=== PATIENT | male | born 1955 | race African-American/Black ===

== ENCOUNTER 2017-12-16 06:57 | Emergency (ER) | payer MEDICAID, OTHER ==
[2017-12-16 07:30] LABS: Bilirubin Negative (Negative); Blood, Urine Negative (Negative); Clarity CLEAR (Clear); Glucose, Urine (Dipstick) Negative (Negative); Leukocyte Moderate (Negative); Nitrite Negative (Negative); Protein, Urine (Dipstick) Trace mg/dL (Neg-Trace); Specific Gravity, Urine 1.019 (1.002-1.036); pH, Urine 6.5 (5.0-9.0)
[2017-12-16 07:32] LABS: Bacteria/HPF None Seen HPF (None Seen); Hyaline Casts/LPF 4-6 HYALINE CAST LPF (0-3 Hyaline); Pathc Cast-AUWi Flag 0.29 (0-2.49); RBC/HPF 0-3 HPF (0-3); Squamous Epithelial 0-3 HPF (0-3)
[2017-12-16] MEDS ORDERED: Acetaminophen 325 MG TAB ONE (07:50)
[2017-12-16] MEDS ORDERED: Ibuprofen 200 MG TAB ONE (07:50)
== END 2017-12-16 08:10 | disposition home or self-care (01) ==
LOC: ERS 06:57
DX: S39.012A Strain of muscle, fascia and tendon of lower back, initial encounter (principal); E78.5 Hyperlipidemia, unspecified; I10 Essential (primary) hypertension; I25.2 Old myocardial infarction; F41.9 Anxiety disorder, unspecified; F17.210 Nicotine dependence, cigarettes, uncomplicated; Z79.899 Other long term (current) drug therapy; Z79.82 Long term (current) use of aspirin; X50.0XXA Overexertion from strenuous movement or load, initial encounter
CPT/HCPCS: 81003; 81015; 99283

== ENCOUNTER 2019-01-31 08:52 | Emergency (ER) | payer OTHER ==
[2019-01-31] MEDS ORDERED: cefTRIAXone\\ROCEPHIN 1 GM VIAL ONE (10:02)
[2019-01-31] MEDS ORDERED: Lidocaine 1% PF 5 ML VIAL ONE (10:03)
[2019-01-31] MEDS ORDERED: Dexamethasone 10 MG/ML VIAL IM SCH (10:15)
--- NOTE | 2019-01-31 10:28 | RAD ---
EXAM: Chest 2 views: HISTORY: Cough for 4 days COMPARISON: 11/12/2015 FINDINGS: There is a normal-sized cardiomediastinal silhouette. The patient is status post CABG. The pacemaker is unchanged in position. There is a calcified right hilar lymph node. There is no evidence of consolidation, mass, or pleural effusion. The bones are unremarkable. IMPRESSION: No evidence of acute cardiopulmonary disease
[2019-01-31] MEDS ORDERED: Dexamethasone 10 MG/ML VIAL ONE (10:32)
== END 2019-01-31 10:50 | disposition home or self-care (01) ==
LOC: ERS 08:52
DX: J18.9 Pneumonia, unspecified organism (principal); I10 Essential (primary) hypertension; E78.5 Hyperlipidemia, unspecified; F17.210 Nicotine dependence, cigarettes, uncomplicated; F41.9 Anxiety disorder, unspecified; E78.00 Pure hypercholesterolemia, unspecified
CPT/HCPCS: 71046; 96372; J0696; J1100; J2001

== ENCOUNTER 2019-02-11 08:30 | Observation (INO) | payer OTHER ==
[2019-02-11 09:01] LABS: #Eosinphils 0.1 thou/uL (0.0-0.7); #Lymphocytes 1.2 thou/uL (1.20-3.40); #Monocytes 0.6 thou/uL (0.11-0.59); #Neutrophils 8.1 thou/uL (1.40-6.50); %Basophils 0.4 % (0.0-1.0); %Eosinophils 0.8 % (0.0-10.0); %Lymphocytes 12.2 % (21.0-51.0); %Monocytes 5.9 % (0.0-10.0); %Neutrophils 80.8 % (42.0-75.0); Hemoglobin 14.2 g/dL (14.0-18.0); Mean Corpuscular HGB CONC 33.6 g/dL (32.0-36.0); Mean Corpuscular Hemoglobin 32.6 pg (27.0-31.0); Mean Corpuscular Volume 96.9 fL (78.0-98.0); Platelet Count 206 thou/uL (130-400); Red Blood Cell (RBC) Count 4.37 mill/uL (4.70-6.10)
[2019-02-11 09:23] LABS: Anion Gap 14 mmol/L (10-20); BUN (Urea Nitrogen) 20 mg/dL (8.4-25.7); Calc. Creatinine Clearance 0 mL/min (70-130); Calcium 8.4 mg/dL (7.8-10.44); Carbon Dioxide 19 mmol/L (23-31); Chloride 110 mmol/L (98-107); Estimated GFR-MDRD Greater than 90; Glucose 79 mg/dL (80-115); Potassium 3.7 mmol/L (3.5-5.1); Sodium 139 mmol/L (136-145)
--- NOTE | 2019-02-11 11:45 | RAD ---
PORTABLE AP CHEST XRAY: HISTORY: Chest pain with onset of symptoms this morning. COMPARISON: 01/31/2019. FINDINGS: Postsurgical changes related to CABG are again noted. Single lead left subclavian AICD device remain s in place. Cardiac silhouette is magnified by projection but does appear mildly enlarged. The pulm onary vasculature is within normal limits. Calcified right hilar mediastinal lymph nodes are again s een. Lungs remain clear. Chest is overall stable compared to prior exam. IMPRESSION: Stable chest without evidence of an acute cardiopulmonary process. POS: OFF
[2019-02-11 13:16] VITALS: BMI 26.4
[2019-02-11] MEDS ORDERED: Ondansetron PF 4 MG/2 ML Vial IVP PRN (13:23)
[2019-02-11] MEDS ORDERED: HYDROcodone/Acetaminophen 5/325 mg Tablet PO PRN ×2 (13:23)
[2019-02-11] MEDS ORDERED: Acetaminophen 325 MG TAB PO PRN (13:23)
[2019-02-11] MEDS ORDERED: Ondansetron ODT 4 MG TAB SL PRN (13:23)
[2019-02-11 15:21] LABS: Troponin I Less than 0.010 ng/mL (< 0.028)
[2019-02-11] MEDS: Guaifenesin DM 100-10/5 ML UDCUP PO PRN (17:29)
[2019-02-11 18:04] LABS: Troponin I 0.018 ng/mL (< 0.028)
[2019-02-11] MEDS: Carvedilol 6.25 MG TAB PO SCH (21:12)
[2019-02-11] MEDS: Famotidine 20 MG TAB PO SCH (21:14)
[2019-02-11] MEDS: Atorvastatin Calcium 40 MG TAB PO SCH (21:14)
--- NOTE | 2019-02-11 23:22 | HP ---
CHIEF COMPLAINT: Chest pain. HISTORY OF PRESENT ILLNESS: Mr. Richter is a 63-year-old Afro-[place] male with past medical history of coronary artery disease, status post CABG, hypertension, came because of chest pain, started in the retrosternal area, pressure-like, nonradiating, not associated with diaphoresis, but he has some shortness of breath. No nausea. This pain started this morning around 7:30 a.m., lasted for some time like more than half an hour, called the EMS. We gave him nitroglycerin, and the pain got resolved after he was reached to the hospital. The patient also received aspirin on the way to the hospital. In the ER, he was evaluated and found to be stable, admitted to rule out myocardial infarction. Initial cardiac enzymes were normal. PAST MEDICAL HISTORY: 1. Coronary artery disease, status post CABG. 2. Hypertension. 3. Hyperlipidemia. 4. Schizoaffective disorder. 5. Seizure disorder. PAST SURGICAL HISTORY: Status post CABG, status post defibrillator placement. CURRENT MEDICATIONS: The patient is on, 1. Amlodipine 10 mg daily. 2. Aspirin 325 mg daily. 3. Atorvastatin 40 mg daily. 4. Coreg 12.5 b.i.d. 5. Plavix 75 mg daily. 6. Isosorbide mononitrate 30 mg daily. 7. Dilantin 100 mg t.i.d. 8. Ranitidine 150 b.i.d. ALLERGIES: NKDA. FAMILY HISTORY: Nothing contributory. SOCIAL HISTORY: The patient lives alone. No history of alcohol intake. He still smokes 1-1/2 pack a day. REVIEW OF SYSTEMS: Unremarkable except for the chest pain. PHYSICAL EXAMINATION: GENERAL: The patient is alert, awake, and oriented x3. VITAL SIGNS: Temperature 98, pulse 80,bp 130/80 HEENT: Head is normocephalic and atraumatic. Pupils are equal and reactive. Nasopharynx is pale and dry. Hard and soft, no lesions. SKIN: Turgor decreased. NECK: Supple. No JVD. LUNGS: Bilateral air entry. No rales. No rhonchi. HEART: S1 and S2 regular. ABDOMEN: Soft. No distention. No tenderness. Normal bowel sounds present. RECTAL: Deferred. NEUROLOGIC: No focal deficits. LABORATORY DATA: CBC shows WBC 10, hemoglobin 14, hematocrit 42, platelets 206. Metabolic panel; sodium 139, potassium 3.7, chloride 110, CO2 19, BUN 20, creatinine 1, glucose 79. Troponin I less than 0.02. IMAGING STUDIES: Chest x-ray negative. EKG shows normal sinus rhythm, no acute ST-T changes seen. ASSESSMENT: 1. Chest pain, rule out myocardial infarction. 2. Hypertension. 3. Coronary artery disease, status post coronary artery bypass graft. 4. Hyperlipidemia. 5. Schizoaffective disorder. 6. Seizure disorder. PLAN: 1. Vital signs q.4 hours. 2. Activities as tolerated. 3. Allergies, NKDA. 4. Hep-Lock. 5. Aspirin 325 mg daily. 6. Nitroglycerin p.r.n. 7. Continue home medications. 8. We will obtain stress test. Job ID: [id number] [facility]
[2019-02-12] MEDS: Guaifenesin DM 100-10/5 ML UDCUP PO PRN ×2 (07:48→20:15)
[2019-02-12] MEDS: Amlodipine 10 MG TAB PO SCH (12:27)
[2019-02-12] MEDS: Carvedilol 6.25 MG TAB PO SCH ×2 (12:27→20:15)
[2019-02-12] MEDS: Aspirin 325 MG TAB PO SCH (12:27)
[2019-02-12] MEDS: Famotidine 20 MG TAB PO SCH ×2 (12:28→20:15)
[2019-02-12] MEDS: Isosorbide Mononitrate (ER) 30 MG TAB PO SCH (12:28)
[2019-02-12] MEDS ORDERED: ADENOSINE 60 MG/20 ML VIAL ONE (12:28)
[2019-02-12] MEDS: Clopidogrel Bisulfate 75 MG TAB PO SCH (12:28)
[2019-02-12] MEDS: Atorvastatin Calcium 40 MG TAB PO SCH (20:15)
--- NOTE | 2019-02-13 07:43 | NM ---
EXAM: NM Cardiac Stress W EF WF PROVIDED CLINICAL HISTORY: Chest pressure/chest pain. History of myocardial infarction. Coronary artery disease. History of prio r CABG and coronary artery stent placement. COMPARISON: 11/13/2015. FINDINGS: This examination was performed as a pharmacologic myocardial stress test after the intravenous admini stration of adenosine. As noted on the prior exam, there is a relatively fixed defect involving the inferior and inferolater al left ventricular wall on both the resting and stress acquisitions no significant reversible defect is seen. Gated images demonstrate generalized hypokinesis with essentially akinesis at the sep kayley. There is decreased thickening involving the inferior left ventricular wall. Left ventricular ejection fraction is diminished at 41%. Left ventricular ejection fraction on the prior study in 2015 was 42%. IMPRESSION: 1. Abnormal myocardial perfusion study with persistent scarring in the inferior and inferolateral lef t ventricular wall. No significant reversible defect is identified to suggest ischemia. 2. Decreased left ventricular ejection fraction of 41%. 3. Generalized hypokinesis with akinesis at the septum.
[2019-02-13] MEDS: Aspirin 325 MG TAB PO SCH (09:38)
[2019-02-13] MEDS: Amlodipine 10 MG TAB PO SCH (09:38)
[2019-02-13] MEDS: Carvedilol 6.25 MG TAB PO SCH ×2 (09:39→20:32)
[2019-02-13] MEDS: Famotidine 20 MG TAB PO SCH ×2 (09:39→20:30)
[2019-02-13] MEDS: Clopidogrel Bisulfate 75 MG TAB PO SCH (09:39)
[2019-02-13] MEDS: Isosorbide Mononitrate (ER) 30 MG TAB PO SCH (09:39)
[2019-02-13] MEDS: Atorvastatin Calcium 40 MG TAB PO SCH (20:30)
[2019-02-13] MEDS: Guaifenesin DM 100-10/5 ML UDCUP PO PRN (20:51)
[2019-02-13 22:11] LABS: Amphetamine Not Detected (NotDetected); Barbiturates Screen Detected (NotDetected); Benzodiazepine Screen Not Detected (NotDetected); Cocaine Metabolite Screen Detected (NotDetected); Medtox Control Line Valid? VALID (VALID); Medtox Reader # READER 1; Methadone Not Detected (NotDetected); Methamphetamine Not Detected (NotDetected); Opiate Screen Not Detected (NotDetected); Oxycodone Screen Not Detected (NotDetected); Phencyclidine (PCP) Not Detected (NotDetected); THC/Cannabinoid Screen Not Detected (NotDetected); Tricyclic Screen Not Detected (NotDetected)
--- NOTE | 2019-02-14 00:26 | CON ---
DATE OF CONSULTATION: 02/13/2019 REASON FOR CONSULTATION: Chest pain. HISTORY OF PRESENT ILLNESS: Mr. Richter is a 63-year-old gentleman with long history of chest pain and coronary artery disease, admitted with an episode of recurrent chest pain. Mr. Richter has had previous bypass surgery. He has also had multiple cardiac catheterizations, most . The patient was admitted in 1996 with noncardiac chest pain and also has a long history unfortunately of noncompliance. He ultimately did undergo cardiac catheterization in 1999 and found to have multivessel disease, had internal mammary to the LAD, vein graft to the diagonal, obtuse marginal and posterior descending artery. He has had multiple catheterizations since then. The cardiac catheterization done most recently was done in 2014 and he was found to have 3-vessel disease, occluded left anterior descending with a patent internal mammary, patent graft to the diagonal, occluded circumflex, patent graft to the obtuse marginal, and occluded right coronary artery with no grafts feasible to the right coronary as it is a chronically occluded vessel down the right coronary due to previous inferior infarct. The patient has some sharp chest pain with negative cardiac enzymes on this admission. MEDICATION: See the nurses note, but does not know what medicines he is taking, so he always makes me wonder what medicines he is actually taking. The prescribed medicines include aspirin, Plavix, atorvastatin, Dilantin, carvedilol, and amlodipine. PAST HISTORY: Other past history; previous defibrillator implantation . REVIEW OF SYSTEMS: CONSTITUTIONAL: No significant weight gain or loss. VISION: No changes. HEARING: No changes. PULMONARY: No cough or wheezing. GASTROINTESTINAL: No nausea, vomiting or diarrhea. SKIN: No rashes. PHYSICAL EXAMINATION: GENERAL: This is a pleasant gentleman, in no distress. VITAL SIGNS: Blood pressure 128/72, pulse 62 and regular. LUNGS: Clear. CARDIAC: Normal S1 and normal S2. ABDOMEN: Soft, nontender. EXTREMITIES: No clubbing, cyanosis, or edema. LABORATORY DATA: Cardiac enzymes were negative. I did order urine drug screen and lipid profile tomorrow. The stress test showed old inferior infarct. No ischemia. ASSESSMENT: 1. Previous bypass surgery. 2. No ischemia on stress testing. 3. History of noncompliance. 4. History of substance abuse. PLAN: 1. Do urine drug screen tomorrow. 2. Okay to me to be released home tomorrow. I would add nitroglycerin if needed. Otherwise would continue the same prescribed medicines. Job ID: [id number]
--- NOTE | 2019-02-14 05:33 | STRESS ---
Acquisition Time: 2019-02-12 10:26:30 Total Exercise Time: 00:03:29 Test Indications: CHEST PRESSURE Medications: Protocol: ADENOSINE Max HR: 071 BPM 44% of Pred: 158 BPM Max BP: 144/082 mmHG Max Work Load: 1.0 METS RESTING ECG: NORMAL SINUS RHYTHM/SINUS BRADYCARDIA WITH NON-SPECIFIC T WAVE CHANGES AT 57 BPM SYMPTOMS: NONE NORMAL BP RESPONSE ECTOPY: NONE ECG STRESS: NO SIGNIFICANT CHANGES INTERPRETATION:NEGATIVE ECG / AWAIT NUCLEAR IMAGES FOR DEFINITIVE DIAGNOSIS Confirmed by NICOLA DAVIS ELLEN ([id number]) on 02/14/2019 5:33:02 AM Referred By: MD [facility] Confirmed By:BREANN DAVIS PA-C
[2019-02-14 07:54] LABS: Cardiac Risk 2.9 (Less than 4.5)
[2019-02-14 08:14] VITALS: BP 144/87; TEMP 98
[2019-02-14] MEDS: Famotidine 20 MG TAB PO SCH (10:12)
[2019-02-14] MEDS: Isosorbide Mononitrate (ER) 30 MG TAB PO SCH (10:12)
[2019-02-14] MEDS: Aspirin 325 MG TAB PO SCH (10:12)
[2019-02-14] MEDS: Amlodipine 10 MG TAB PO SCH (10:12)
[2019-02-14] MEDS: Carvedilol 6.25 MG TAB PO SCH (10:12)
[2019-02-14] MEDS: Clopidogrel Bisulfate 75 MG TAB PO SCH (10:12)
--- NOTE | 2019-02-15 14:26 | DIS ---
DATE OF ADMISSION: 02/11/2019 DATE OF DISCHARGE: 02/14/2019 ADMITTING DIAGNOSES: 1. Chest pain, rule out myocardial infarction. 2. Hypertension. 3. Coronary artery disease, status post coronary artery bypass graft. 4. Hyperlipidemia. 5. Atrial fibrillation. 6. Seizure disorder. FINAL DIAGNOSES: 1. Chest pain. No evidence of acute ID, but showed abnormal Cardiolite stress test with persistent scarring in inferior and inferolateral wall with global hypokinesis with decreased ejection fraction of 41%. 2. Hypertension. 3. Schizoaffective disorder. 4. Coronary artery disease by history. BRIEF SUMMARY OF HOSPITAL COURSE: Mr. Richter is a 63-year-old Afro- male, admitted because of chest pain. We have discussed the patient, admitted to rule out myocardial infarction. Serial cardiac enzymes were done. Second CK-MB was within 0.018, third one was recent 0.018. Cardiolite stress test done, showed it was abnormal with persistent scattering inferior and inferolateral wall and global hypokinesis. In the view that, Cardiology consult was requested. The patient was seen by Dr. Garber, felt the patient does not have any acute ID. The stress test showing number of scarring. No reversible ischemia. Advised urine drug screen and it was positive for cocaine. The chest pain resolved. In view of that the patient is being discharged home. At the time of discharge, he was stable, vital signs stable, lungs clear, abdomen soft. Bowel sounds present. DISCHARGE MEDICATIONS: 1. Aspirin 325 mg daily. 2. Plavix 75 mg daily. 3. Lipitor 40 mg daily. 4. Dilantin 100 mg t.i.d. 5. Imdur 30 mg daily. 6. Coreg 12.5 b.i.d. 7. Amlodipine 10 mg daily. 8. Pepcid 20 b.i.d. 9. Robitussin p.r.n. FOLLOWUP: The patient will come for followup in 2 weeks. Job ID: [id number]
== END 2019-02-14 10:31 | disposition home or self-care (01) ==
LOC: ERS 08:30 → 2SW 13:11 → INTOOBSV 13:11
PROVIDERS: ADMIT Internal Medicine; ATTEND Internal Medicine
DX: R07.2 Precordial pain (principal); I10 Essential (primary) hypertension; E78.5 Hyperlipidemia, unspecified; I25.10 Atherosclerotic heart disease of native coronary artery without angina pectoris; I48.91 Unspecified atrial fibrillation; F25.9 Schizoaffective disorder, unspecified; G40.909 Epilepsy, unspecified, not intractable, without status epilepticus; Z79.82 Long term (current) use of aspirin; Z79.899 Other long term (current) drug therapy; Z95.1 Presence of aortocoronary bypass graft; Z95.810 Presence of automatic (implantable) cardiac defibrillator
CPT/HCPCS: 36415; 71045; 78452; 80048; 80061; 80306; 84484; 85025; 93005; 93017; A9500; G0378; J0153

== ENCOUNTER 2019-04-08 10:20 | Observation (INO) | payer OTHER ==
--- NOTE | 2019-04-08 10:45 | RAD ---
EXAM: Chest PA and lateral: HISTORY: Chest pain COMPARISON: 01/31/2019 FINDINGS: Lung marie are clear. Vascular markings are normal. Calcified right hilar lymph node again noted. Heart and mediastinum appear unremarkable. AICD leads and postoperative sternotomy changes again noted. Osseous structures are unremarkable. IMPRESSION: No acute process. No interval change.
[2019-04-08 11:40] LABS: #Basophils 0.1 thou/uL (0.0-0.2); #Eosinphils 0.1 thou/uL (0.0-0.7); #Lymphocytes 1.4 thou/uL (1.20-3.40); #Monocytes 0.7 thou/uL (0.11-0.59); #Neutrophils 4.8 thou/uL (1.40-6.50); %Basophils 0.9 % (0.0-1.0); %Eosinophils 1.1 % (0.0-10.0); %Lymphocytes 20.4 % (21.0-51.0); %Monocytes 9.5 % (0.0-10.0); %Neutrophils 68.2 % (42.0-75.0); Hemoglobin 14.3 g/dL (14.0-18.0); Mean Corpuscular HGB CONC 34.6 g/dL (32.0-36.0); Mean Corpuscular Hemoglobin 32.3 pg (27.0-31.0); Mean Corpuscular Volume 93.3 fL (78.0-98.0); Mean Platelet Volume 8.7 fL (7.4-10.4); Platelet Count 158 thou/uL (130-400); Red Blood Cell (RBC) Count 4.42 mill/uL (4.70-6.10)
[2019-04-08 11:52] LABS: ALT (SGPT) 16 U/L (8-55); AST (SGOT) 18 U/L (5-34); Albumin 3.8 g/dL (3.4-4.8); Alkaline Phosphatase 106 U/L (40-110); Anion Gap 11 mmol/L (10-20); BUN (Urea Nitrogen) 19 mg/dL (8.4-25.7); Bilirubin, Total 0.8 mg/dL (0.2-1.2); Calc. Creatinine Clearance 0 mL/min (70-130); Calcium 8.9 mg/dL (7.8-10.44); Carbon Dioxide 25 mmol/L (23-31); Chloride 106 mmol/L (98-107); Estimated GFR-MDRD 80; Globulin 2.7 g/dL (2.4-3.5); Glucose 76 mg/dL (80-115); Potassium 3.6 mmol/L (3.5-5.1); Protein, Total 6.5 g/dL (5.8-8.1); Sodium 138 mmol/L (136-145)
[2019-04-08 12:13] LABS: CKMB 3.4 ng/mL (0-6.6)
--- NOTE | 2019-04-08 13:12 | PDOC.FPRHP ---
- History of Present Illness Chief Complaint: Chest pain History of Present Illness: 63 y/o M with a pmhx of [place] X4, S/P CABG, HTN, and seizure D/O presents to the ED with CP, that cameon with walking this AM. PT states the pain was centrally located, alleviated with rest, and radiated down his left side. Associated with diaphoresis, SOB and and nausea. No vomiting. CP is not present upon my evaluation of patient. Pt states he is dizzy when he stands up suddenly. C/o sinus drainage and a cough with yellow productive sputum for X1 month now. Pt states he had a seizure 1.5 weeks ago. He has had seizure disorder for "years." Last month pt had a stress test with fixed defect. Dye Tub Tender Dr. Garber. ED course: EKG: T wave inversions, Trop 0.059. CTA neg for dissection or PE. Started on Th Lovenox. - Allergies/Adverse Reactions Allergies Allergy/AdvReac Type Severity Reaction Status Date / Time No Known Drug Allergies Allergy Verified 02/11/19 13:18 - Home Medications Medication Instructions Recorded Confirmed Type Aspirin 325 mg PO DAILY 02/10/13 04/08/19 History Clopidogrel Bisulfate [Plavix] 75 mg PO DAILY 02/10/13 04/08/19 History Atorvastatin Calcium [Lipitor] 40 mg PO HS 08/13/14 04/08/19 History Phenytoin Sodium Extended 100 mg PO BID 08/16/14 04/08/19 History [Dilantin] Isosorbide Mononitrate [Imdur] 30 mg PO DAILY #0 tab 12/19/14 04/08/19 Rx Carvedilol [Coreg] 12.5 mg PO BID 11/15/15 04/08/19 History Amlodipine [Norvasc] 10 mg PO DAILY 02/11/19 04/08/19 History Famotidine [Pepcid] 20 mg PO BID #30 tab 02/14/19 04/08/19 Rx - History PMHx: GI ulcer, Drug abuse, CAD, seizure d/o, CAD S/P CABG 1999, X4 [place], HTN PSHx: CABG 1999 FHx: Father of [place] at age 52, Mother HTN and DM II Social: Smokes cigarettes about 1 PPD for 40 years. Occasional beer, denies drug use. - Review of Systems General: denies: fever/chills, night sweats Eyes: denies: eye pain ENT: reports: nasal congestion, rhinorrhea Respiratory: reports: cough, congestion, shortness of breath, exercise intolerance Cardiovascular: reports: chest pain. denies: palpitation, edema Gastrointestinal: reports: nausea. denies: vomiting, diarrhea, abdominal pain Skin: denies: rashes, lesions Musculoskeletal: denies: pain, tenderness Neurological: reports: seizure (1.5 weeks ago.). denies: numbness, syncope - Vital signs BP: 143/88 HR: 80 RR: 18 Tmax: 98.4 Pox: 99% on RA Wt: 84.8 - Physical Exam Constitutional: NAD, awake, alert and oriented, well developed HEENT: normocephalic and atraumatic, PERRLA, EOMI, grossly normal vision, grossly normal hearing, MMM Neck: supple, FROM, no LAD Heart: RRR, normal S1/S2, no murmurs/rubs/gallops, pulses present, no edema Lungs: CTAB, no respiratory distress, good air movement, no rales/rhonchi, no wheezing, no retractions Abdomen: soft, non-tender, bowel sounds present Musculoskeletal: normal structure, normal tone Neurological: no focal deficit, CN II-XII intact, normal sensation Skin: no rash/lesions, good turgor, capillary refill <2 seconds Heme/Lymphatic: no unusual bruising or bleeding Psychiatric: normal mood and affect, good judgment and insight FMR H&P: Results - Labs Result Diagrams: 04/09/19 04:09 04/09/19 04:09 Lab results: WBC 7.0 thou/uL (4.8-10.8) 04/08/19 11:22 Hgb 14.3 g/dL (14.0-18.0) 04/08/19 11:22 Hct 41.2 % (42.0-52.0) L 04/08/19 11:22 MCV 93.3 fL (78.0-98.0) 04/08/19 11:22 Plt Count 158 thou/uL (130-400) 04/08/19 11:22 Neutrophils % 68.2 % (42.0-75.0) 04/08/19 11:22 Sodium 138 mmol/L (136-145) 04/08/19 11:22 Potassium 3.6 mmol/L (3.5-5.1) 04/08/19 11:22 Chloride 106 mmol/L (98-107) 04/08/19 11:22 Carbon Dioxide 25 mmol/L (23-31) 04/08/19 11:22 BUN 19 mg/dL (8.4-25.7) 04/08/19 11:22 Creatinine 1.13 mg/dL (0.7-1.3) 04/08/19 11:22 Glucose 76 mg/dL (80-115) L 04/08/19 11:22 Calcium 8.9 mg/dL (7.8-10.44) 04/08/19 11:22 Total Bilirubin 0.8 mg/dL (0.2-1.2) 04/08/19 11:22 AST 18 U/L (5-34) 04/08/19 11:22 ALT 16 U/L (8-55) 04/08/19 11:22 Alkaline Phosphatase 106 U/L (40-110) 04/08/19 11:22 CK-MB (CK-2) 3.4 ng/mL (0-6.6) 04/08/19 11:22 Serum Total Protein 6.5 g/dL (5.8-8.1) 04/08/19 11:22 Albumin 3.8 g/dL (3.4-4.8) 04/08/19 11:22 - EKG Interpretation EKG: T wave inversions - Radiology Interpretation Chest x-ray Status: report reviewed by me (no acute process) CT scan - chest Status: report reviewed by me (No PE or dissection) FMR H&P: A/P - Problem List (1) Chest pain Status: Acute Code(s): R07.9 - CHEST PAIN, UNSPECIFIED (2) HTN (hypertension) Status: Acute Code(s): I10 - ESSENTIAL (PRIMARY) HYPERTENSION (3) Seizure disorder Status: Acute Code(s): G40.909 - EPILEPSY, UNSP, NOT INTRACTABLE, WITHOUT STATUS EPILEPTICUS (4) CAD (coronary artery disease) Status: Acute Code(s): I25.10 - ATHSCL HEART DISEASE OF [place] CORONARY ARTERY W/O ANG PCTRS (5) Hx of CABG Status: Acute - Plan 63 y/o M admitted to [facility] for ACS rule out. 1. Chest Pain, ACS rule out - Substernal, exertional, radiation down left side - EKG: new T wave inversions - Trops 0.049, trending - Nitro paste PRN for CP, PRN O2 keep sats at 92% - Cards consulted, Dr. Lopez, appreciate recs. Suggested possible cath - Recent stress showed fixed, non-reversible defect. - holding ASA and plavix with possible cath wednesday. 2. CAD, Hx of X4 [place] - S/P CABG in 1999 - continue home meds, Imdur, carvedilol - Fhx of [place] causing in father at age 52. 3. Hx of HTN - Restart home medications 4. Seizure Disorder - continue home meds. Phenytoin 30 mg daily 5. Hx of drug abuse - UDS pending 6. Hx of GI ulcer - famotidine 20 mg BID Code Status: Full code Diet: HH, CC DVT ppx: Dispo: Stable, cards consulted and follow recs. Possible cath Wednesday. FMR H&P: Upper Level - Pertinent history 63 yo male with known CAD presents for evaluation of typical chest pain symptoms. Of note, he had a stress test less than one month ago that showed a fixed defect with no reversible ischemia. Please see international relations teacher note above for further information. - Plan Date/Time: 04/08/19 1311 I, Shay Reyes MD, have evaluated this patient and agree with findings/ plan as outlined by international relations teacher resident. Pertinent changes/additions are listed here. 1. Typical Chest Pain - New t wave inversions on EKG - Indeterminate Troponins - With recent stress test will consult Cardiology 2. CAD - Known history with CABG - Continue home meds 3. Tobacco abuse - Recommended cessation All other chronic conditions reviewed and home medications restarted as appropriate. PCP: QIANA Lo CODE STATUS: FULL CODE Disposition: Stable, will admit for further cardiac evaluation. Addendum - Attending - Attending Attestation Date/Time: 04/11/19 4728 I personally evaluated the patient and discussed the management with Dr. Bowles at time of admission. I agree with the History, Examination, Assessment and Plan documented above with any addition or exceptions noted below.
[2019-04-08] MEDS ORDERED: Iopamidol 370 76% 50 ML VIAL FS ONE (13:14)
--- NOTE | 2019-04-08 13:20 | CT ---
CTA OF THE CHEST AND ABDOMEN UTILIZING IV CONTRAST AND 3D REFORMATTED IMAGES WITH AORTIC DISSECTION P ROTOCOL: COMPARISON: None. FINDINGS: No acute aortic stenosis, occlusion, or aneurysmal formation is evident. There is postsurgical singh e of a prior CABG. The celiac, SMA, and renal arteries are patent. The JOSSUE demonstrates some mild n arrowing near its origin. Both common iliac arteries and iliac bifurcations are patent. There are m oderate atherosclerotic calcifications. No definite central pulmonary embolus is evident. There are calcified lymph nodes within the mediastinal and hilar regions. There is scattered emphyse ma. The layered density within the gallbladder is suspicious for gallstones. There is a small flash-fill ing lesion within the right hepatic dome measuring 1.5 cm which cannot be further characterized. The re are scattered calcified granuloma in the liver and spleen. There are bilateral renal cysts. Adrenal glands and pancreas appear within normal limits. No free f luid or enlarged lymph nodes are evident. There is a fat-containing umbilical hernia. There is scat tered colonic diverticulosis. There is a 1.7 cm enhancing lesion seen within the posterior wall of t he 2nd stage of the duodenum. No definite acute osseous abnormality is evident. IMPRESSION: 1. No acute aortic stenosis, occlusion, or aneurysmal formation demonstrated. 2. Enhancing mucosal and intramural lesion of the 2nd stage of the duodenum. Duodenal mass is of co ncern. A followup gastroenterology consultation is recommended. 3. Emphysema. Findings of prior granulomatous disease. 4. Small flash-filling lesion involving the right hepatic dome is incompletely characterized. A fol lowup CT of the abdomen utilizing hemangioma protocol is recommended for additional characterization. 5. Suspected gallbladder sludge. 6. Bilateral renal cysts. CODE T POS: CET
[2019-04-08] MEDS ORDERED: Enoxaparin Sodium 80 MG/0.8 ML SYRINGE ONE (13:31)
[2019-04-08] MEDS ORDERED: Ondansetron ODT 4 MG TAB PO PRN (14:25)
[2019-04-08] MEDS ORDERED: Acetaminophen 325 MG TAB PO PRN (14:25)
[2019-04-08 14:26] VITALS: BMI 27.6
[2019-04-08] MEDS ORDERED: Nicotine 14 MG PATCH TD SCH (15:00)
[2019-04-08 15:11] LABS: Troponin I Less than 0.010 ng/mL (< 0.028)
[2019-04-08 18:01] LABS: Troponin I 0.026 ng/mL (< 0.028)
[2019-04-08] MEDS: Carvedilol 6.25 MG TAB PO SCH (20:23)
[2019-04-08] MEDS: Famotidine 20 MG TAB PO SCH (20:23)
--- NOTE | 2019-04-08 20:34 | CON ---
DATE OF CONSULTATION: 04/08/2019 REASON FOR CONSULTATION: Chest pain. PRIMARY CRIB TENDER: Justin Garber MD HISTORY OF PRESENT ILLNESS: Mr. Richter is a pleasant 63-year-old gentleman, who comes to the hospital for chest pain. He has several episodes and admissions for chest pain in the past. He was here at the beginning of February for the same reason. He underwent a nuclear stress testing that showed an inferior scar with a reduced EF at about 42%. He was told that he was diagnosed with chronic stable angina and was just given a prescription for p.r.n. nitroglycerin which he never filled. He has not used any of his p.r.n. nitroglycerin. He is only stayed on the same medications as before. He decided to come in today as he had another episode of chest pain. Cardiology has been consulted for further help with this. His troponins have been negative x3 and otherwise his blood work is unremarkable. PAST MEDICAL HISTORY: 1. Coronary artery disease, status post CABG. In 1999, he had MENDEZ to the LAD, a vein to a diagonal, a vein to an obtuse marginal and posterior descending artery. The last catheterization was in 2014 and he had an occluded LAD with patent MENDEZ to LAD, patent graft to diagonal, and occluded circumflex with a patent graft to the OM and an occluded right with no graft to the right. He underwent stress testing at that time that showed inferior scar, which is consistent with same coronary anatomy as in 2015. 2. History of AICD placement. 3. Hypertension. 4. Seizure disorder. 5. GI ulcers. 6. Drug abuse in the past. REVIEW OF SYSTEMS: Positive for dizzy on standing up. Has had sinus drainage and cough productive of yellow sputum for the last month or so and had a seizure a week and a half ago and he had not has any seizure in many years. OUTPATIENT MEDICATIONS: 1. Aspirin 325 a day. 2. Plavix 75 mg a day. 3. Atorvastatin 40 mg at bedtime. 4. Dilantin 100 mg b.i.d. 5. Isosorbide mononitrate 30 mg a day. 6. Carvedilol 12.5 mg b.i.d. 7. Amlodipine 10 mg a day. 8. Famotidine 20 mg b.i.d. PAST SURGICAL HISTORY: CABG in the year 1999 as above. FAMILY HISTORY: Father of [place] at 52. Mother with high blood pressure and diabetes. SOCIAL HISTORY: A pack-a-day smoking history for 40 years. Occasional beer. No drug use. ALLERGIES: NO KNOWN DRUG ALLERGIES. PHYSICAL EXAMINATION: VITAL SIGNS: Temperature 97.6, pulse 62, respiratory rate 18, saturations 94% on room air, and blood pressure 151/80. GENERAL: Awake, alert, oriented x3. No distress. HEENT: Normocephalic and atraumatic. NECK: Supple. LUNGS: Clear. CARDIOVASCULAR: S1 and S2. No S3 or S4. No murmurs. ABDOMEN: Soft. Positive bowel sounds. EXTREMITIES: No edema. SKIN: Warm and dry. LABORATORY DATA: Laboratory work was reviewed. CBC is unremarkable. Chemistries were normal. Troponin initially was 0.04 and then 0.01 and 0.26 with a normal CK-MB. A CT of the chest per dissection protocol was negative. There is an enhancing mucosal and intramural lesion in the second stage of the duodenum, which is concerning for mass. There is emphysema. There is a lesion on the liver suggestive of hemangioma, gallbladder sludge, and bilateral renal cysts. Chest x-ray was unremarkable. ASSESSMENT AND PLAN: 1. Chronic stable angina. We will increase his Imdur. 2. We would only plan on heart catheterization if his troponins were to bump. 3. Urine drug screen should be done. I think this is already pending. 4. We will keep overnight and observe and depending on his clinical evolution, we will decide whether he needs a heart catheterization or not. 5. EKG changes are new, but T-wave inversion is fairly unimpressive. We would continue medical management for now. Thank you for letting us to participate in the care of your patient. We will follow. Job ID: [id number]
[2019-04-08] MEDS ORDERED: Atorvastatin Calcium 40 MG TAB PO SCH (21:00)
[2019-04-09 04:28] LABS: #Basophils 0.1 thou/uL (0.0-0.2); #Eosinphils 0.1 thou/uL (0.0-0.7); #Lymphocytes 1.5 thou/uL (1.20-3.40); #Monocytes 0.6 thou/uL (0.11-0.59); #Neutrophils 2.1 thou/uL (1.40-6.50); %Eosinophils 2.4 % (0.0-10.0); %Lymphocytes 34.8 % (21.0-51.0); %Monocytes 13.2 % (0.0-10.0); %Neutrophils 47.7 % (42.0-75.0); Hemoglobin 15.2 g/dL (14.0-18.0); Mean Corpuscular HGB CONC 34.1 g/dL (32.0-36.0); Mean Corpuscular Hemoglobin 31.9 pg (27.0-31.0); Mean Corpuscular Volume 93.7 fL (78.0-98.0); Mean Platelet Volume 8.7 fL (7.4-10.4); Platelet Count 153 thou/uL (130-400); Red Blood Cell (RBC) Count 4.77 mill/uL (4.70-6.10); White Blood Cell (WBC) Count 4.3 thou/uL (4.8-10.8)
[2019-04-09 04:48] LABS: Anion Gap 10 mmol/L (10-20); BUN (Urea Nitrogen) 19 mg/dL (8.4-25.7); Calc. Creatinine Clearance 85 mL/min (70-130); Calcium 8.7 mg/dL (7.8-10.44); Carbon Dioxide 26 mmol/L (23-31); Chloride 107 mmol/L (98-107); Estimated GFR-MDRD 85; Glucose 80 mg/dL (80-115); Potassium 3.7 mmol/L (3.5-5.1); Sodium 139 mmol/L (136-145)
--- NOTE | 2019-04-09 05:59 | PDOC.FM ---
- Subjective Subjective: Pt denies any current CP, SOB. No acute overnight events. Rested well overnight. - Objective MAR Reviewed: Yes Vital Signs & Weight: Vital Signs (12 hours) Temp Pulse Resp BP BP Pulse Ox 04/09/19 03:43 97.7 F 57 L 17 143/91 H 118/78 100 04/08/19 22:59 97.7 F 57 L 17 118/78 100 04/08/19 20:25 112/74 04/08/19 20:23 112/74 04/08/19 19:20 98.1 F 76 17 98/62 95 Weight Weight 84.368 kg I&O: 04/07/19 04/08/19 04/09/19 06:59 06:59 06:59 Intake Total 500 Balance 500 Result Diagrams: 04/09/19 04:09 04/09/19 04:09 Phys Exam - Physical Examination Constitutional: NAD HEENT: moist MMs, sclera anicteric Neck: no nodes, supple Respiratory: no wheezing, no rales, no rhonchi, clear to auscultation bilateral Cardiovascular: RRR, no rub Gastrointestinal: soft, non-tender, no distention, positive bowel sounds Musculoskeletal: no edema, pulses present Neurological: non-focal, normal sensation, moves all 4 limbs Psychiatric: normal affect, A&O x 3 Skin: no rash, normal turgor, cap refill <2 seconds Dx/Plan (1) Chest pain Code(s): R07.9 - CHEST PAIN, UNSPECIFIED Status: Acute (2) HTN (hypertension) Code(s): I10 - ESSENTIAL (PRIMARY) HYPERTENSION Status: Acute (3) Seizure disorder Code(s): G40.909 - EPILEPSY, UNSP, NOT INTRACTABLE, WITHOUT STATUS EPILEPTICUS Status: Acute (4) CAD (coronary artery disease) Code(s): I25.10 - ATHSCL HEART DISEASE OF [place] CORONARY ARTERY W/O ANG PCTRS Status: Acute (5) Hx of CABG Status: Acute (6) Chronic stable angina Code(s): I20.8 - OTHER FORMS OF ANGINA PECTORIS Status: Acute - Plan Plan: 63 y/o M admitted to [facility] for ACS rule out. 1. Chronic Stable Angina, ACS rule out - Substernal, exertional, radiation down left side - EKG: new T wave inversions - Trops 0.049, 0.010, 0.026 - Nitro paste PRN for CP, PRN O2 keep sats at 92% - Cards consulted, Dr. Lopez, appreciate recs. - Recent stress showed fixed, non-reversible defect. - holding ASA and plavix with possible cath wednesday. Resume if Cards decides no cath. 2. CAD, Hx of X4 [place] - S/P CABG in 1999 - continue home meds, Imdur, carvedilol - Fhx of [place] causing in father at age 52. 3. Hx of HTN - Restart home medications 4. Seizure Disorder - continue home meds. Phenytoin 30 mg daily 5. Hx of drug abuse - UDS pending 6. Hx of GI ulcer - famotidine 20 mg BID Code Status: Full code Diet: HH, CC DVT ppx: Dispo: Stable, cards consulted and follow recs. Addendum - Attending - Attending Attestation Date/Time: 04/09/19 1207 I personally evaluated the patient and discussed the management with Dr. Bowles. I agree with the History, Examination, Assessment and Plan documented above with any addition or exceptions noted below. Discussed with cards and they feel no cath necessary. Ok to discharge. I discussed the duodenal mass in detail and he voiced understanding. He will see us and be referred to GI.
[2019-04-09 08:14] VITALS: BP 141/86; TEMP 97.4
[2019-04-09] MEDS ORDERED: Iopamidol 0 ML ONE (08:56)
[2019-04-09] MEDS ORDERED: Enoxaparin Sodium 40 MG/0.4 ML SYRINGE SC SCH (09:00)
[2019-04-09] MEDS ORDERED: Amlodipine 10 MG TAB PO SCH (09:00)
[2019-04-09] MEDS ORDERED: Isosorbide Mononitrate (ER) 30 MG TAB PO SCH (09:00)
[2019-04-09] MEDS ORDERED: Clopidogrel Bisulfate 75 MG TAB PO SCH (09:00)
[2019-04-09] MEDS ORDERED: Aspirin 325 MG TAB PO SCH (09:00)
[2019-04-09] MEDS: Carvedilol 6.25 MG TAB PO SCH (09:21)
[2019-04-09] MEDS: Famotidine 20 MG TAB PO SCH (09:22)
--- NOTE | 2019-04-10 14:09 | DIS ---
DATE OF ADMISSION: 04/08/2019 DATE OF DISCHARGE: 04/09/2019 RESIDENT: Sheryl Bowles DO ADMITTING ATTENDING: Leonel Cruz MD DISCHARGE ATTENDING: Dr. Patel Ralph. CONSULTS: Cardiology, Viet Lopez MD PROCEDURES PERFORMED: CTA of the chest which showed no dissection and no pulmonary embolism. There was a lesion involving the right hepatic dome of the CT, recommending a followup outpatient as this is concerning for an enhancing mucosal intramural lesion of second stage of the duodenum. 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 We will recommend this followup in the discharge plan. DIAGNOSES: 1. Chronic stable angina. 2. Coronary artery disease with history of four myocardial infarctions, status post coronary artery bypass grafting. 3. Hypertension. 4. Seizure disorder. 5. History of drug abuse. 6. History of gastrointestinal ulcer. DISCHARGE MEDICATIONS: 1. Amlodipine 10 mg p.o. daily. 2. Atorvastatin 40 mg p.o. at bedtime. 3. Carvedilol 12.5 mg p.o. b.i.d. 4. Famotidine 20 mg p.o. b.i.d. 5. Imdur 30 mg p.o. daily. 6. Dilantin 300 mg p.o. daily. 7. Aspirin 325 mg p.o. daily. 8. Plavix 75 mg p.o. daily. HISTORY OF PRESENT ILLNESS/HOSPITAL COURSE: Mr. Richter is a 63-year-old male with a history of chronic stable angina, status post four MIs, status post CABG in 1999, hypertension, seizure disorder, and drug abuse disorder. He came into the emergency department because of some exertional chest pain, it got better with rest. Initial troponin was indeterminate at 0.049. This troponin trended down 0.010 to 0.026. The patient's chest pain was completely alleviated the next morning. CTA of the chest showed no PE and no dissection. However, there was a duodenal mass. It is of concern and recommended Gastroenterology followup. We will place this upon discharge and stressed the importance of the patient to get follow up on this duodenal mass. The patient was seen by Dr. Lopez, who stated he would do a cast if the troponins trended up, however, troponins trended down before discharge. Patient was discussed with Dr. Lopez, who felt it was safe to discharge the patient as his troponins have come back down. The patient's chest pain has completely gone in the morning of 04/09, and he is eager to go home. DISPOSITION: Stable upon discharge. DISCHARGE INSTRUCTIONS: 1. Location: Home. 2. Diet: Heart healthy. 3. Activity: As tolerated. 4. Followup: Follow up with primary care at [facility] in one week's time. Follow up with Dr. Garber, Cardiology, in 2 weeks and follow up with outpatient Gastroenterology for duodenal mass in 2 weeks time. Job ID: [id number]
== END 2019-04-09 11:09 | disposition home or self-care (01) ==
LOC: ERS 10:20 → 2SW 14:24
PROVIDERS: ADMIT Family Medicine; ATTEND Family Medicine
DX: I25.118 Atherosclerotic heart disease of native coronary artery with other forms of angina pectoris (principal); I25.2 Old myocardial infarction; I10 Essential (primary) hypertension; G40.909 Epilepsy, unspecified, not intractable, without status epilepticus; I25.10 Atherosclerotic heart disease of native coronary artery without angina pectoris; F17.210 Nicotine dependence, cigarettes, uncomplicated; J43.9 Emphysema, unspecified; Q61.02 Congenital multiple renal cysts; E78.5 Hyperlipidemia, unspecified; E78.00 Pure hypercholesterolemia, unspecified; F41.9 Anxiety disorder, unspecified; F19.11 Other psychoactive substance abuse, in remission; Z79.02 Long term (current) use of antithrombotics/antiplatelets; Z79.82 Long term (current) use of aspirin; Z79.899 Other long term (current) drug therapy; Z95.1 Presence of aortocoronary bypass graft; Z95.810 Presence of automatic (implantable) cardiac defibrillator
CPT/HCPCS: 36415; 71046; 71275; 72191; 74175; 80048; 80053; 82553; 84484; 85025; 93005; 93306; 94760; 96372; G0378; J1650; Q9966; Q9967

== ENCOUNTER 2019-06-12 06:22 | Observation (INO) | payer OTHER ==
[2019-06-12] MEDS ORDERED: Nitroglycerin 2% Ointment 1 INCH/1 GM Packet ONE (06:33)
[2019-06-12 06:45] LABS: #Basophils 0.1 thou/uL (0.0-0.2); #Eosinphils 0.1 thou/uL (0.0-0.7); #Lymphocytes 1.4 thou/uL (1.20-3.40); #Monocytes 0.5 thou/uL (0.11-0.59); #Neutrophils 3.1 thou/uL (1.40-6.50); %Basophils 1.5 % (0.0-1.0); %Eosinophils 2.7 % (0.0-10.0); %Lymphocytes 26.6 % (21.0-51.0); %Monocytes 9.3 % (0.0-10.0); %Neutrophils 59.8 % (42.0-75.0); Hemoglobin 14.8 g/dL (14.0-18.0); Mean Corpuscular HGB CONC 32.4 g/dL (32.0-36.0); Mean Corpuscular Hemoglobin 30.8 pg (27.0-31.0); Mean Corpuscular Volume 95.2 fL (78.0-98.0); Mean Platelet Volume 8.7 fL (7.4-10.4); Platelet Count 164 thou/uL (130-400); RBC Distribution Width 12.4 % (11.5-14.5); Red Blood Cell (RBC) Count 4.79 mill/uL (4.70-6.10); White Blood Cell (WBC) Count 5.1 thou/uL (4.8-10.8)
[2019-06-12 07:01] LABS: Sodium 142 mmol/L (136-145)
[2019-06-12 07:02] LABS: ALT (SGPT) 18 U/L (8-55); AST (SGOT) 19 U/L (5-34); Albumin 3.9 g/dL (3.4-4.8); Alkaline Phosphatase 104 U/L (40-110); Anion Gap 13 mmol/L (10-20); BUN (Urea Nitrogen) 18 mg/dL (8.4-25.7); Bilirubin, Total 0.5 mg/dL (0.2-1.2); Calc. Creatinine Clearance 0 mL/min (70-130); Carbon Dioxide 23 mmol/L (23-31); Chloride 110 mmol/L (98-107); Estimated GFR-MDRD 83; Globulin 2.8 g/dL (2.4-3.5); Glucose 103 mg/dL (80-115); Potassium 4.1 mmol/L (3.5-5.1); Protein, Total 6.7 g/dL (5.8-8.1)
--- NOTE | 2019-06-12 07:14 | RAD ---
RADIOGRAPH CHEST 1 VIEW: DATE: 06/12/2019 HISTORY: 63-year-old male with chest pain FINDINGS: There are no airspace densities, pulmonary edema, pneumothorax, or cardiomegaly. The lateral costophr enic angles are sharp. Signs of previous CABG. Left subclavian single lead AICD. IMPRESSION: No acute cardiopulmonary findings.
--- NOTE | 2019-06-12 08:43 | PDOC.FPRHP ---
- History of Present Illness Chief Complaint: Chest pain History of Present Illness: Mr. Richter is a 63yo gentleman with a significant cardiac history who presents for evaluation of chest pain. He has a history of 4 prior MIs, prior CABG and prior AICD placement. This episode of chest pain started at 3am and abruptly woke him from sleep. He reports the pain as sharp, 10/10, substernal with radiation to left arm, and associated with diaphoresis. He did not try any medications to relieve the pain. He reports cough that he has had for many months. He is still smoking 1- 1.5ppd. Once EMS arrived, he states the pain relieved with Nitro. Currently he is pain free and hungry. He denies nausea, vomiting, or shortness of breath with the chest pain. He has stress test in February which showed inferior scar and reduced EF of 42%. His ECHO in April showed EF of 40-45% with Grade 1 Diastolic failure and inferolateral hypokinesis. ED Course: ASA 325, Nitro 1inch - Allergies/Adverse Reactions Allergies Allergy/AdvReac Type Severity Reaction Status Date / Time No Known Drug Allergies Allergy Verified 02/11/19 13:18 - Home Medications Medication Instructions Recorded Confirmed Type Aspirin 325 mg PO DAILY 02/10/13 06/12/19 History Clopidogrel Bisulfate [Plavix] 75 mg PO DAILY 02/10/13 06/12/19 History Atorvastatin Calcium [Lipitor] 40 mg PO HS 08/13/14 06/12/19 History Phenytoin Sodium Extended 100 mg PO BID 08/16/14 06/12/19 History [Dilantin] Isosorbide Mononitrate [Imdur] 30 mg PO DAILY #0 tab 12/19/14 06/12/19 Rx Carvedilol [Coreg] 12.5 mg PO BID 11/15/15 06/12/19 History Amlodipine [Norvasc] 10 mg PO DAILY 02/11/19 06/12/19 History Famotidine [Pepcid] 20 mg PO BID #30 tab 02/14/19 06/12/19 Rx - History PMHx: CAD HFrEF (ECHO 04/09/19 EF 40-45%, grade 1/3 diastolic dysfunction, inferolateral hypokinesis) HTN Seizure disorder H/o GI ulcers H/o drug abuse PSHx: CABG 1999 Heart cath 2015 - occluded LAD AICD placement 2006 FHx: Father, NV @ 52. Mother, HTN and DM Social: 1ppd x 50 years. Social alcohol use. Denies current alcohol use. - Review of Systems General: denies: fever/chills, weight/appetite/sleep changes, night sweats, fatigue Eyes: denies: eye pain, vision changes ENT: denies: nasal congestion, rhinorrhea Respiratory: reports: cough, congestion. denies: shortness of breath Cardiovascular: reports: chest pain, edema. denies: palpitation, paroxysmal nocturnal dyspnea, orthopnea Gastrointestinal: denies: nausea, vomiting, diarrhea, constipation, abdominal pain Genitourinary: denies: incontinence, dysuria, polyuria Skin: denies: rashes, lesions Musculoskeletal: denies: pain, tenderness Neurological: denies: numbness, syncope, weakness Psychological: denies: anxiety, depression - Vital signs BP: 135/87, Pulse: 68, Resp: 20, Temp: 98.7 (Oral), Pain: 6, O2 sat: 98 on ( Room Air) - Physical Exam Constitutional: NAD, awake, alert and oriented, well developed HEENT: normocephalic and atraumatic, PERRLA, EOMI, conjunctiva clear, grossly normal vision, grossly normal hearing, MMM Neck: supple, trachea midline, no JVD Chest: no-tender to palpation Heart: RRR, normal S1/S2, no murmurs/rubs/gallops, pulses present, no edema Lungs: no respiratory distress -Lungs: Tight breath sounds in the bilateral upper lung marie. Crackles in the bases bilaterally. Abdomen: soft, non-tender, bowel sounds present Musculoskeletal: normal structure, normal tone Neurological: no focal deficit, CN II-XII intact Skin: no rash/lesions, good turgor, capillary refill <2 seconds Heme/Lymphatic: no unusual bruising or bleeding, no purpura Psychiatric: normal mood and affect, intact recent and remote memory FMR H&P: Results - Labs Result Diagrams: 06/12/19 06:37 06/12/19 06:37 Lab results: WBC 5.1 thou/uL (4.8-10.8) 06/12/19 06:37 Hgb 14.8 g/dL (14.0-18.0) 06/12/19 06:37 Hct 45.6 % (42.0-52.0) 06/12/19 06:37 MCV 95.2 fL (78.0-98.0) 06/12/19 06:37 Plt Count 164 thou/uL (130-400) 06/12/19 06:37 Neutrophils % 59.8 % (42.0-75.0) 06/12/19 06:37 Sodium 142 mmol/L (136-145) 06/12/19 06:37 Potassium 4.1 mmol/L (3.5-5.1) 06/12/19 06:37 Chloride 110 mmol/L (98-107) H 06/12/19 06:37 Carbon Dioxide 23 mmol/L (23-31) 06/12/19 06:37 BUN 18 mg/dL (8.4-25.7) 06/12/19 06:37 Creatinine 1.09 mg/dL (0.7-1.3) 06/12/19 06:37 Glucose 103 mg/dL (80-115) 06/12/19 06:37 Calcium 9.0 mg/dL (7.8-10.44) 06/12/19 06:37 Total Bilirubin 0.5 mg/dL (0.2-1.2) 06/12/19 06:37 AST 19 U/L (5-34) 06/12/19 06:37 ALT 18 U/L (8-55) 06/12/19 06:37 Alkaline Phosphatase 104 U/L (40-110) 06/12/19 06:37 Serum Total Protein 6.7 g/dL (5.8-8.1) 06/12/19 06:37 Albumin 3.9 g/dL (3.4-4.8) 06/12/19 06:37 - EKG Interpretation EKG: EKG stable with prior study, T-wave inversions in V5, V6. - Radiology Interpretation Chest x-ray Status: report reviewed by me (IMPRESSION: No acute cardiopulmonary findings.) FMR H&P: A/P - Problem List (1) CAD (coronary artery disease) Current Visit: No Status: Acute Code(s): I25.10 - ATHSCL HEART DISEASE OF [place] CORONARY ARTERY W/O ANG PCTRS (2) Chest pain Current Visit: No Status: Acute Code(s): R07.9 - CHEST PAIN, UNSPECIFIED (3) Chronic stable angina Current Visit: No Status: Acute Code(s): I20.8 - OTHER FORMS OF ANGINA PECTORIS (4) HTN (hypertension) Current Visit: No Status: Acute Code(s): I10 - ESSENTIAL (PRIMARY) HYPERTENSION (5) Hx of CABG Current Visit: No Status: Acute (6) Seizure disorder Current Visit: No Status: Acute Code(s): G40.909 - EPILEPSY, UNSP, NOT INTRACTABLE, WITHOUT STATUS EPILEPTICUS - Plan Acute coronary syndrome rule out -Pt has history of [place]. S/p CABG and AICD. -Has frequently been evaluated for chest pains, most recently in 02/2019. 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 -Heart score of 5. -Pain relieved with nitroglycerin. Will place on Tele Obs and trend troponins. Will consult cardiology for recommendations. -Nitro and Tylenol PRN HTN -Will continue Amlodipine, ASA and Coreg HFrEF, Grade 1 Diastolic Dysfunction -Will monitor closely. -Continue Coreg, Isosorbide. Seizure disorder -Will continue Phenytoin Suspect COPD -Will add duonebs prn. -CXR no acute cardiopulmonary findings. HLD -Continue atorvastatin Disposition/LOS: Dispo: Stable, obs. VTE: ASA and SCDs, may undergo cath. Code: Full FMR H&P: Upper Level - Plan Date/Time: 06/12/19 0843 I, Natalio Brunson MD, have evaluated this patient and agree with findings/plan as outlined by purchasing intern resident. Pertinent changes/additions are listed here. Jeanmarie Richter is a 63 year old M with a PMH of CAD s/p NV X4 and 3 vessel CABG with AICD/pacemaker, CHF (last echo had EF 40-45% with 1/3 diastolic dysfunction ) seizure disorder, HTN, HLD who presented to the ED with acute onset of substernal pressure chest pain with radiation to the left arm and associated dyspnea. Chest pain woke him up from sleep, worsened with exertion, improved with rest and resolved completely in ED after nitro was given. Denies n/v, diaphoresis. States pain was 9/10 and felt the same as previous heart attacks. Had abnormal stress in Feb 2019, but cath was not done at that time because there were no elevations in troponin. Imdur was increased during that admission. Vitals in the ED were stable and wnl. Initial trop was 0.011, EKG showed NSR with T wave inversions in V5, V6, similar to previous EKG in Feb 2019. CXR showed no acute cardiopulmonary findings. He was given ASA and nitro in the ED. [facility] typical chest pain r/o ACS. 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 Continue to trend cardiac enzymes, continue asa, statin, nitro and imdur. Continue home antihypertensives. Will follow Cards recs. Please see purchasing intern note above for full H&P, which I have reviewed and agree with. PCP: QIANA Miranda Code Status: FULL
[2019-06-12] MEDS ORDERED: Aspirin Chewable 81 MG TAB ONE (09:07)
[2019-06-12] MEDS ORDERED: Nitroglycerin 0.4 MG TAB (25 Tab Bottle) PO PRN (10:24)
[2019-06-12] MEDS ORDERED: Ondansetron ODT 4 MG TAB PO PRN (10:28)
[2019-06-12] MEDS ORDERED: Guaifenesin DM 100-10/5 ML UDCUP PO PRN (10:28)
[2019-06-12] MEDS ORDERED: Acetaminophen 325 MG TAB PO PRN (10:28)
[2019-06-12 11:02] LABS: Troponin I 0.019 ng/mL (< 0.028)
[2019-06-12 13:40] LABS: Troponin I Less than 0.010 ng/mL (< 0.028)
[2019-06-12 14:17] VITALS: BMI 27.6
[2019-06-12] MEDS: Famotidine 20 MG TAB PO SCH (20:05)
[2019-06-12] MEDS ORDERED: Atorvastatin Calcium 40 MG TAB PO SCH (21:00)
--- NOTE | 2019-06-13 00:06 | CON ---
DATE OF CONSULTATION: 06/12/2019 INDICATION FOR CONSULTATION: A 63-year-old patient with history of coronary artery disease who complained of chest discomfort. He presented to the hospital last night at about 3 o'clock this morning. He woke up with sharp stabbing chest pains, which lasted about half an hour. He also stated he had a sharp stabbing pain to his left arm. He does have a history of coronary artery disease. He has underwent bypass surgery in 1999 with a MENDEZ to the left anterior descending artery and saphenous vein graft to a diagonal branch and obtuse marginal branch, posterior descending artery and the right coronary artery. He underwent cardiac catheterization also in 2014, which showed an occluded left anterior descending with a patent left internal mammary artery to the left anterior descending artery without any significant stenosis distally. He also had patents graft to the diagonal branch as well as to the obtuse marginal branch of left circumflex. He had an occluded right coronary and noted there was no graft noted to the right coronary. The posterior descending artery arises from the left circumflex. He also had an occluded proximal left circumflex. A stress testing at that time did show an inferior scar and he continues to have by EKG evidence of an old inferior myocardial infarction. He also has a history of cardiomyopathy. He has undergone AICD implant. He has history of hypertension and has some history of drug abuse in the past. At this time, his enzymes remained negative, EKG is unchanged. He does not have any acute ST-segment changes. He is not having any complaints. He does have some T-wave inversions in the lateral leads and also has evidence of lateral myocardial infarction, but does not have evidence on the EKG of an inferior myocardial infarction. At this time, he is comfortable. He is eating dinner. He denies any further chest pain. He says as soon as he got nitroglycerin, the pain resolved. He denies having any nitroglycerin at home. PAST MEDICAL HISTORY: Significant for the coronary artery disease, bypass surgery, cardiomyopathy, AICD implant, hypertension, history of seizures, gastroesophageal disease with gastric ulcers. He has had a history of drug abuse in the past. REVIEW OF SYSTEMS: A 12-point review of system is unremarkable except occasional dizziness. He says he is able to walk quite a bit and sometimes he has discomfort and sometimes not. He says sometimes the pain will arise later on the day after he has gone for a walk, but not while he is walking. He does have a history of seizure disorders, but apparently has not had any significant seizures in the last couple of years. MEDICATIONS: Prior to admission should include: Aspirin. 1. Plavix. 2. Atorvastatin. 3. He is on Dilantin. 4. Isosorbide mononitrate. 5. Coreg. 6. Amlodipine. 7. Famotidine. FAMILY HISTORY: Positive for myocardial infarction in the father at age 52. He due to myocardial infarction and mother also had diabetes and hypertension. SOCIAL HISTORY: He smoked in the past. He has illicit drugs in the past. He has occasional alcohol use. He has been positive for cocaine in the past. There was no drug screen performed at this time. ALLERGIES: NONE. PHYSICAL EXAMINATION: GENERAL: Reveals a well-developed, well-nourished gentleman, who is in no acute distress at this time. He is eating dinner and appears to be comfortable without any complaints. VITAL SIGNS: He is afebrile. Heart rate is in the 70s that shows a sinus rhythm, respiratory rate 16, blood pressure is 134/84. HEENT: Shows the head to be normocephalic and atraumatic. Carotid pulses are present. I cannot hear any bruits. CHEST: Clear to auscultation. There were no rales, rhonchi or wheezing. CARDIOVASCULAR: Reveals a regular rate and rhythm with normal S1, S2. There was no S3, S4. He does have a soft systolic murmur at the upper sternal border, most likely compatible with some mild aortic valve sclerosis. Otherwise the cardiac exam was unremarkable. ABDOMEN: Soft and nontender. Positive bowel sounds are present. EXTREMITIES: Showed no clubbing or cyanosis. He has well-healed surgical incision after surgical incision for saphenous vein graft retrieval. He also has a well-healed midline surgical incision of the chest area after bypass surgery. NEUROLOGICAL: The patient is fully intact and do not elicit any gross focal motor deficits. He seems to have normal strength and tone for someone of his age. He did have decreased pedal pulses, however, but otherwise he denied any claudication type symptoms. LABORATORY DATA: Shows a sodium of 142, BUN is 18, creatinine 1.09. Blood sugar is 103. Troponin I's are negative for myocardial infarction x3. His WBC is 5.1, hemoglobin 14.8, hematocrit 45.6, and platelet count is 164,000. IMPRESSION: An elderly gentleman with a history of coronary artery disease, bypass surgery, previous myocardial infarctions. His last echocardiogram was in April 2019, which showed ejection fraction of 40% to 45% with evidence of 1/3 diastolic dysfunction. He did have some inferior lateral hypokinesis compatible with what we were seeing now with EKG changes compatible with lateral myocardial infarction. Also, he has some mild dilatation of left atrium and some mild mitral annular calcifications. The aortic valve was sclerotic and I suspect that is the murmur that we are hearing now, but there was no significant stenosis noted across the valve. There was also some [id number] aortic valve regurgitation noted. IMPRESSION: 1. Elderly gentleman with coronary disease and mild cardiomyopathy, who again has had some chest pain, but no cardiac enzymes elevation and EKG with some nonspecific changes. He does have a long-acting nitroglycerin, which he takes at home. He may need additional nitroglycerin at home to take sublingual when he has this discomfort. This may not be cardiac in nature as he describes as being a sharp stabbing type pain and there was no radiation of the discomfort to any other areas and he did not become nauseated, diaphoretic or more short of breath than usual. We will be more than happy to continuing to follow this patient with you, but at this time, from a cardiac standpoint, he appears to be stable overall. 2. History of cardiomyopathy. He has automatic implantable cardioverter defibrillator in place, uncertain the last time this was evaluated. 3. History of seizure disorder. He appears to be stable as long as he takes his medication. He should continue to be fine. 4. History of illicit drug use in the past. There was no drug screen performed at this time, but over the last previous admissions he has been positive for cocaine. At this time, we will just continue to follow the patient and if he remains stable, could be discharged home tomorrow. We will consider giving him sublingual nitroglycerin in addition to his Imdur. Further care of the patient will be by Dr. Garber when he visits with the patient tomorrow. Job ID: [id number] [facility]
[2019-06-13 05:03] LABS: Cardiac Risk 2.9 (Less than 4.5)
--- NOTE | 2019-06-13 05:09 | PDOC.FM ---
- Subjective Subjective: Mr. Richter is doing well this morning. He has not had any chest pain events overnight. - Objective MAR Reviewed: Yes Vital Signs & Weight: Vital Signs (12 hours) Temp Pulse Resp BP BP Pulse Ox 06/13/19 02:34 87 16 112/67 95 06/12/19 23:30 97.8 F 76 20 107/78 95 06/12/19 19:00 98.7 F 79 15 102/63 Weight Weight 84.912 kg Result Diagrams: 06/12/19 06:37 06/12/19 06:37 Phys Exam - Physical Examination Constitutional: NAD HEENT: PERRLA, moist MMs Neck: no JVD, supple, full ROM Respiratory: no wheezing, no rales, no rhonchi, clear to auscultation bilateral Cardiovascular: RRR, no significant murmur, no rub Gastrointestinal: soft, non-tender, no distention Musculoskeletal: no edema, pulses present Neurological: non-focal, normal sensation, moves all 4 limbs Psychiatric: normal affect, A&O x 3 Skin: no rash, normal turgor Dx/Plan (1) CAD (coronary artery disease) Code(s): I25.10 - ATHSCL HEART DISEASE OF [place] CORONARY ARTERY W/O ANG PCTRS Status: Acute (2) Chest pain Code(s): R07.9 - CHEST PAIN, UNSPECIFIED Status: Acute (3) Chronic stable angina Code(s): I20.8 - OTHER FORMS OF ANGINA PECTORIS Status: Acute (4) HTN (hypertension) Code(s): I10 - ESSENTIAL (PRIMARY) HYPERTENSION Status: Acute (5) Hx of CABG Status: Acute (6) Seizure disorder Code(s): G40.909 - EPILEPSY, UNSP, NOT INTRACTABLE, WITHOUT STATUS EPILEPTICUS Status: Acute - Plan Plan: Acute coronary syndrome rule out -Pt has history of [place]. S/p CABG and AICD. -Troponins negative. -Cardiology consulted. Dr. Garber plans to see patient today. Will likely d/c home with rx for nitro. -Nitro and Tylenol PRN HTN -Will continue Amlodipine, ASA and Coreg HFrEF, Grade 1 Diastolic Dysfunction -Continue Coreg, Isosorbide. Seizure disorder -Will continue Phenytoin Suspect COPD -Will add duonebs prn. -CXR no acute cardiopulmonary findings. HLD -Continue atorvastatin Disposition/LOS: Dispo: Stable, obs. VTE: ASA and SCDs. Code: Full Addendum - Attending - Attending Attestation Date/Time: 06/13/19 4082 I personally evaluated the patient and discussed the management with the team. I agree with the History, Examination, Assessment and Plan documented above with any addition or exceptions noted below. Patient without cp/sob, no n/v, no f/c. He does say he has a chronic cough and was told he has emphysema on a CXR. Await his primary date night sitter and likely dc.
[2019-06-13] MEDS: Famotidine 20 MG TAB PO SCH (08:20)
[2019-06-13] MEDS ORDERED: Amlodipine 10 MG TAB PO SCH (09:00)
[2019-06-13] MEDS ORDERED: Aspirin 325 MG TAB PO SCH (09:00)
[2019-06-13] MEDS ORDERED: Clopidogrel Bisulfate 75 MG TAB PO SCH (09:00)
[2019-06-13 11:28] VITALS: BP 105/67; TEMP 98
--- NOTE | 2019-06-14 05:39 | DIS ---
DATE OF ADMISSION: 06/12/2019 DATE OF DISCHARGE: 06/13/2019 RESIDENT: Radha Grande MD ADMITTING ATTENDING: Patel Ralph MD DISCHARGE ATTENDING: Patel Ralph MD CONSULT: Cardiology, Dr. Allred and Dr. Garber. PROCEDURES: None. PRIMARY DIAGNOSIS: Unstable angina. SECONDARY DIAGNOSES: 1. Coronary artery disease. 2. Heart failure with reduced ejection fraction. 3. Hypertension. 4. Seizure disorder. 5. History of gastrointestinal ulcers. 6. History of drug abuse. DISCHARGE MEDICATIONS: 1. Amlodipine. 2. Aspirin. 3. Atorvastatin. 4. Carvedilol. 5. Clopidogrel. 6. Phenytoin. 7. Famotidine. 8. Isosorbide. 9. Nitroglycerin 0.4 mg sublingual q.5 minutes, maximum 3 doses p.r.n. for chest pain. DISCONTINUED MEDICATIONS: None. HISTORY OF PRESENT ILLNESS AND HOSPITAL COURSE: Mr. Richter is a 63-year-old gentleman with a significant cardiac history, who presents for evaluation of chest pain. Chest pain occurred at 3:00 a.m. overnight prior to admission and woke him from sleep. It was 10/10, substernal in location with radiation to the left arm. He denied trying any medications at home to relieve the pain and his pain was relieved when EMS arrived and he received nitro. The pain did not recur while he was in the hospital. Dr. Allred saw the patient on the day of admission and recommended that he follow up with his primary yield analyst. Dr. Garber came by and saw the patient on the day of discharge, who recommended that he will be discharged with nitroglycerin sublingual for chest pain in the future. DISPOSITION: Stable. DISCHARGE INSTRUCTIONS: 1. Location: Home. 2. Diet: Heart healthy. 3. Activity: Ad benito. 4. Followup: Follow up with primary care physician within 7 days. Follow up with yield analyst as needed. Job ID: [id number] MTDD
== END 2019-06-13 14:06 | disposition home or self-care (01) ==
LOC: ERS 06:22 → ERHOLD 08:23 → UNDOADMOB 08:23 → ERHOLD 11:21 → 2SW 13:53
PROVIDERS: ADMIT Emergency Medicine; ATTEND Emergency Medicine
DX: I25.110 Atherosclerotic heart disease of native coronary artery with unstable angina pectoris (principal); I11.0 Hypertensive heart disease with heart failure; I50.20 Unspecified systolic (congestive) heart failure; G40.909 Epilepsy, unspecified, not intractable, without status epilepticus; F17.210 Nicotine dependence, cigarettes, uncomplicated; Z79.82 Long term (current) use of aspirin; Z79.899 Other long term (current) drug therapy; Z95.1 Presence of aortocoronary bypass graft; Z95.810 Presence of automatic (implantable) cardiac defibrillator
CPT/HCPCS: 36415; 71045; 80053; 80061; 84484; 85025; 93005; 94760; G0378

== ENCOUNTER 2019-07-13 06:28 | Day surgery (SDC) | payer OTHER ==
[2019-07-13] MEDS ORDERED: PROPOFOL 200 MG/20 ML VIAL ONE (10:21)
--- NOTE | 2019-07-13 11:02 | OP ---
DATE OF PROCEDURE: 07/13/2019 PROCEDURES PERFORMED: 1. Esophagogastroduodenoscopy with biopsy. 2. Colonoscopy with polypectomy. INDICATIONS FOR PROCEDURE: GERD, abnormal GI imaging showing a duodenal mass, screening for malignant neoplasm of the colon (1st colonoscopy with average risk). DESCRIPTION OF PROCEDURES: After the risks and benefits of the procedures were explained to the patient, including risks of bleeding, infection, perforation, reactions to anesthesia, aspiration, and/or pain, informed consent was obtained. The patient was then taken to the endoscopy suite where he was placed in the left lateral decubitus position followed by induction of deep sedation via propofol and anesthesia support. Once adequate sedation was achieved, the standard gastroscope was introduced into the mouth with intubation of the esophagus, stomach, and the proximal small intestines with the findings listed below. Upon conclusion of the upper endoscopy, all equipment was removed from the patient and the bed was rotated 180 degrees in anticipation of the colonoscopy. A digital rectal examination was then performed followed by introduction of the standard colonoscope which was then introduced into the rectum and advanced to the terminal ileum with some difficulty secondary to looping of the scope that required manual abdominal pressure to facilitate passage of the scope. The quality of the prep was good to excellent with adequate visualization achieved. The patient tolerated the procedure well with no immediate perioperative complications. Upon conclusion of the procedure, all equipment was removed from the patient and he was transferred to Day Stay in satisfactory condition. EGD FINDINGS: Esophagus: Normal-appearing mucosa was seen in both the proximal and mid esophagus; however, salmon-colored mucosa was seen in the distal esophagus extending proximally from the gastroesophageal junction. This salmon-colored mucosa extended circumferentially approximately 2 to 3 cm from the gastroesophageal junction with irregular Z-line at that point. Multiple biopsies were taken for evaluation of possible Hammond esophagus ([place] classification C2 M2). Otherwise, there was no evidence of erosions, ulcerations, mass lesions, or active/recent bleeding. Stomach: Normal-appearing mucosa was seen in the gastric cardia, fundus, and body. However, mild mucosal erythema was seen in the gastric antrum and along the incisura. A 2 to 3 cm submucosal mass was seen in the gastric antrum. There did have some overlying superficial ulcerations, but no evidence of active or recent bleeding. Multiple biopsies were then taken of this submucosal mass and placed in a specimen jar for further evaluation. Otherwise, there was no evidence of active bleeding or mucosal masses seen within the stomach. Duodenum: Normal-appearing mucosa was seen in the duodenal bulb; however, along the duodenal sweep, there was a 1.5 cm submucosal mass that was also seen, that was very difficult to visualize given its current position. A few biopsies were taken of the mass, but difficult to obtain due to the positioning of the mass. These biopsies were placed in a specimen jar for further evaluation. Otherwise, normal-appearing mucosa was then seen in the second portion of the duodenum. There was no evidence of erosions, ulcerations, or active/recent bleeding. EGD IMPRESSION: 1. 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 2. A 2 to 3 cm submucosal gastric mass, status post biopsies, concerning for a gastrointestinal stromal tumor. 3. A 1.5 cm submucosal mass seen at the duodenal sweep, concerning for gastrointestinal stromal tumor, status post biopsies. 4. Mild mucosal erythema seen in the gastric antrum and along the incisura. EGD RECOMMENDATIONS: 1. We will follow up on the biopsy results with repeat upper endoscopy based on pathology results. 2. I would refer the patient for endoscopic ultrasound for further evaluation of both the gastric and duodenal submucosal masses. 3. Would hold anticoagulation for the next 48 hours, then resume Plavix. 4. Continue with standard acid reflux precautions. 5. Continue PPI daily. COLONOSCOPY FINDINGS: Digital rectal exam: A large external hemorrhoid was seen on external examination with increased mucosal erythema and mild oozing of blood. Otherwise, no masses were palpated with normal sphincter tone. Colon findings: Normal-appearing mucosa was seen within the terminal ileum as well as at the ileocecal valve and appendiceal orifice. A 4 to 5 mm polyp was seen in the cecum and completely removed with snare cautery polypectomy. It was retrieved and placed in a specimen jar for further evaluation. Normal-appearing mucosa was then seen in the ascending colon. Three polyps measuring 3 to 6 mm in size were seen in the transverse colon and completely removed with snare cautery polypectomy. They were retrieved and placed in a specimen jar for further evaluation. A 3 mm polyp was seen in the descending colon and completely removed with cold snare polypectomy, but the polyp was not retrieved. Normal-appearing mucosa was then seen in the sigmoid colon. Lastly, a 3 to 4 mm polyp was seen in the rectum and completely removed with snare cautery polypectomy. It was retrieved and placed in a specimen jar for further evaluation. Small to medium-sized internal hemorrhoids were seen on rectal retroflexion. COLONOSCOPY IMPRESSION: 1. A 4 to 5 mm cecal polyp status post hot snare polypectomy. 2. Three transverse colon polyps, measuring 3-5 mm, status post hot snare polypectomy. 3. A 3 mm descending colon polyp status post cold snare polypectomy, but not retrieved. 4. A 3 to 4 mm rectal polyp status post hot snare polypectomy. 5. Small to medium-sized internal hemorrhoids. 6. Large external hemorrhoids with mild oozing of blood (most likely reason for hematochezia). COLONOSCOPY RECOMMENDATIONS: 1. We will follow up on the pathology report with repeat colonoscopy interval depending on pathology results based on the polyps removed today. If they were all adenomatous, I would recommend a repeat colonoscopy in 3 years. 2. Would recommend a higher fiber diet given the presence of internal and external hemorrhoids. 3. Continue with current medications, but would hold any anticoagulation for the next 48 hours (Plavix). 4. Would have the patient follow up in the GI Clinic in 6 weeks for further followup of these submucosal masses in the upper endoscopy. Job ID: [id number]
== END 2019-07-13 10:27 | disposition home or self-care (01) ==
LOC: SDC 06:28
PROVIDERS: ATTEND Internal Medicine
PROC: 0DBL8ZX Excision of Transverse Colon, Via Natural or Artificial Opening Endoscopic, Diagnostic (ICD-10-PCS; principal; 2019-07-13)
PROC: 0DB78ZX Excision of Stomach, Pylorus, Via Natural or Artificial Opening Endoscopic, Diagnostic (ICD-10-PCS; principal; 2019-07-13)
PROC: 0DB98ZX Excision of Duodenum, Via Natural or Artificial Opening Endoscopic, Diagnostic (ICD-10-PCS; principal; 2019-07-13)
PROC: 0DBM8ZZ Excision of Descending Colon, Via Natural or Artificial Opening Endoscopic (ICD-10-PCS; principal; 2019-07-13)
PROC: 0DBH8ZX Excision of Cecum, Via Natural or Artificial Opening Endoscopic, Diagnostic (ICD-10-PCS; principal; 2019-07-13)
PROC: 0DB58ZX Excision of Esophagus, Via Natural or Artificial Opening Endoscopic, Diagnostic (ICD-10-PCS; principal; 2019-07-13)
PROC: 0DBP8ZX Excision of Rectum, Via Natural or Artificial Opening Endoscopic, Diagnostic (ICD-10-PCS; principal; 2019-07-13)
DX: D12.0 Benign neoplasm of cecum (principal); D12.3 Benign neoplasm of transverse colon; K64.4 Residual hemorrhoidal skin tags; K64.8 Other hemorrhoids; K62.1 Rectal polyp; K29.80 Duodenitis without bleeding; K29.50 Unspecified chronic gastritis without bleeding; B96.81 Helicobacter pylori [H. pylori] as the cause of diseases classified elsewhere; K21.0 Gastro-esophageal reflux disease with esophagitis; I25.10 Atherosclerotic heart disease of native coronary artery without angina pectoris; E78.00 Pure hypercholesterolemia, unspecified; F17.200 Nicotine dependence, unspecified, uncomplicated; Z79.02 Long term (current) use of antithrombotics/antiplatelets; Z79.899 Other long term (current) drug therapy; Z95.1 Presence of aortocoronary bypass graft; Z95.818 Presence of other cardiac implants and grafts
CPT/HCPCS: 88305; 88312; J2704

== ENCOUNTER 2020-01-27 11:12 | Observation (INO) | payer OTHER ==
[2020-01-27 11:47] LABS: #Eosinphils 0.1 thou/uL (0.0-0.7); #Lymphocytes 1.5 thou/uL (1.20-3.40); #Monocytes 0.2 thou/uL (0.11-0.59); #Neutrophils 2.4 thou/uL (1.40-6.50); %Basophils 0.9 % (0.0-1.0); %Eosinophils 1.6 % (0.0-10.0); %Lymphocytes 35.4 % (21.0-51.0); %Monocytes 5.4 % (0.0-10.0); %Neutrophils 56.7 % (42.0-75.0); Hemoglobin 14.9 g/dL (14.0-18.0); Mean Corpuscular HGB CONC 33.6 g/dL (32.0-36.0); Mean Corpuscular Hemoglobin 33.3 pg (27.0-31.0); Mean Platelet Volume 9.1 fL (7.4-10.4); Platelet Count 171 thou/uL (130-400); RBC Distribution Width 11.7 % (11.5-14.5); Red Blood Cell (RBC) Count 4.47 mill/uL (4.70-6.10); White Blood Cell (WBC) Count 4.3 thou/uL (4.8-10.8)
[2020-01-27 12:30] LABS: ALT (SGPT) 18 U/L (8-55); AST (SGOT) 18 U/L (5-34); Albumin 3.9 g/dL (3.4-4.8); Alkaline Phosphatase 91 U/L (40-110); Anion Gap 16 mmol/L (10-20); BUN (Urea Nitrogen) 19 mg/dL (8.4-25.7); Bilirubin, Total 0.7 mg/dL (0.2-1.2); CK (CPK) 135 U/L (30-200); Calc. Creatinine Clearance 0 mL/min (70-130); Carbon Dioxide 24 mmol/L (23-31); Chloride 107 mmol/L (98-107); Estimated GFR-MDRD 69; Globulin 2.9 g/dL (2.4-3.5); Glucose 104 mg/dL (80-115); Lipase 41 U/L (8-78); Potassium 3.6 mmol/L (3.5-5.1); Protein, Total 6.8 g/dL (5.8-8.1); Sodium 142 mmol/L (136-145)
--- NOTE | 2020-01-27 12:42 | PDOC.FPRHP ---
- History of Present Illness Chief Complaint: chest pain History of Present Illness: Pt is a 64 yo M with a PMH of HTN, seizure disorder, CAD s/p CABG, HFrEF, ulcers, drug use who presents to the ED with the complaint of chest pain. He states the pain is substernal and feels sharp and has been present x2 weeks. Pain does not increase with activity. It acutely got worse today when he was sitting, resting. The pain intensified, remained sharp and radiated to his left arm and into his legs. He felt dizzy during this episode but denies feeling SOB or being diaphoretic. The episode lasted 15 minutes and was resolved when he took a nitro. He states the pain feels similar to when he had a NC in the past. He has no more pain during initial interview in the ED. Last echo was in 04/2019 which showed EF 40-45%, grade 1/3 diastolic dysfunction, inferior lateral hypokinesis, and right ventricular systolic pressure of 35. Stress test in 02/2019 showed abnormal myocardial perfusion study with persistent scarring in inferior and inferolateral left ventricular wall. Last cath was in 2015. ED Course: CXR negative for acute process EKG showed lateral ischemia, sinus rhythm Labs WNL, troponin .012 received 324 mg ASA - Allergies/Adverse Reactions Allergies Allergy/AdvReac Type Severity Reaction Status Date / Time No Known Drug Allergies Allergy Verified 07/27/19 14:00 - Home Medications Medication Instructions Recorded Confirmed Type Aspirin 325 mg PO DAILY 02/10/13 01/27/20 History Clopidogrel Bisulfate [Plavix] 75 mg PO DAILY 02/10/13 01/27/20 History Atorvastatin Calcium [Lipitor] 40 mg PO HS 08/13/14 01/27/20 History Phenytoin Sodium Extended 300 mg PO BID 08/16/14 01/27/20 History [Dilantin] Isosorbide Mononitrate [Imdur] 30 mg PO DAILY #0 tab 12/19/14 01/27/20 Rx Carvedilol [Coreg] 12.5 mg PO BID 11/15/15 01/27/20 History Amlodipine [Norvasc] 10 mg PO DAILY 02/11/19 01/27/20 History Famotidine [Pepcid] 20 mg PO BID #30 tab 02/14/19 01/27/20 Rx Nitroglycerin 0.4 mg SL Q5MIN PRN 07/07/19 01/27/20 History - History PMHx: CAD HFrEF (ECHO 04/09/19 EF 40-45%, grade 1/3 diastolic dysfunction, inferolateral hypokinesis) HTN Seizure disorder H/o GI ulcers H/o drug abuse PSHx: CABG 1999 Heart cath 2016 AICD placement 2006 FHx: Father, NC @ 52. Mother, HTN and DM Social: 2ppd x 50 years. Social alcohol use. Denies current alcohol use or drug use - Review of Systems General: denies: fever/chills, weight/appetite/sleep changes Eyes: denies: vision changes Respiratory: denies: cough, shortness of breath Cardiovascular: reports: chest pain. denies: edema Gastrointestinal: denies: nausea, vomiting Skin: denies: lesions Musculoskeletal: reports: pain (b/l LE) Neurological: reports: weakness (b/l legs). denies: syncope Psychological: denies: anxiety, depression - Vital signs BP: [] HR: [] RR: [] Tmax: [] Pox: []% on [] Wt: [] - Physical Exam Constitutional: NAD, awake, alert and oriented, well developed HEENT: normocephalic and atraumatic, EOMI Neck: supple, trachea midline Chest: no-tender to palpation Heart: RRR, normal S1/S2 Lungs: no respiratory distress -Lungs: wheezes b/l Abdomen: soft, non-tender, bowel sounds present Musculoskeletal: normal tone, ROM grossly normal -Musculoskeletal: pain in upper thighs b/l, weakness b/l Neurological: no focal deficit Skin: good turgor Psychiatric: normal mood and affect FMR H&P: Results - Labs Result Diagrams: 01/27/20 11:28 01/27/20 11:28 Lab results: WBC 4.3 thou/uL (4.8-10.8) L 01/27/20 11:28 Hgb 14.9 g/dL (14.0-18.0) 01/27/20 11:28 Hct 44.2 % (42.0-52.0) 01/27/20 11:28 MCV 99.0 fL (78.0-98.0) H 01/27/20 11:28 Plt Count 171 thou/uL (130-400) 01/27/20 11:28 Neutrophils % 56.7 % (42.0-75.0) 01/27/20 11:28 Sodium 142 mmol/L (136-145) 01/27/20 11:28 Potassium 3.6 mmol/L (3.5-5.1) 01/27/20 11:28 Chloride 107 mmol/L (98-107) 01/27/20 11:28 Carbon Dioxide 24 mmol/L (23-31) 01/27/20 11:28 BUN 19 mg/dL (8.4-25.7) 01/27/20 11:28 Creatinine 1.27 mg/dL (0.7-1.3) 01/27/20 11:28 Glucose 104 mg/dL (80-115) 01/27/20 11:28 Calcium 9.0 mg/dL (7.8-10.44) 01/27/20 11:28 Total Bilirubin 0.7 mg/dL (0.2-1.2) 01/27/20 11:28 AST 18 U/L (5-34) 01/27/20 11:28 ALT 18 U/L (8-55) 01/27/20 11:28 Alkaline Phosphatase 91 U/L (40-110) 01/27/20 11:28 Creatine Kinase 135 U/L (30-200) 01/27/20 11:28 Serum Total Protein 6.8 g/dL (5.8-8.1) 01/27/20 11:28 Albumin 3.9 g/dL (3.4-4.8) 01/27/20 11:28 Lipase 41 U/L (8-78) 01/27/20 11:28 - EKG Interpretation EKG: t wave abnormality, consider lateral ischemia, inferior infarct sinus rhythm FMR H&P: A/P - Plan 1. Chest pain 2/2 ACS vs GERD vs MSK -acute episode of substernal sharp CP radiating to left arm at rest, associated dizziness, relieved with Nitro -ACS r/o with patient past history of heart disease -Trop neg x2, trend one more -EKG showed T wave abnormality, consider lateral ischemia -CXR neg for acute process -TSH, A1C WNL, lipid panel pending -Cardiology consulted, appreciate the recs 2. CAD s/p CABG -CABG in 1999 as per patient -last cath in 2015 -used to follow with Dr. Garber, cardiology -stress test in 02/2019 showed abnormal myocardial perfusion study with persistent scarring in inferior and inferolateral left ventricular wall. 3. HFrEF -last echo was in 04/2019 which showed EF 40-45%, grade 1/3 diastolic dysfunction, inferior lateral hypokinesis, and right ventricular systolic pressure of 35 -continue home meds 4. HTN - vitals WNL -continue home meds 5. Ulcers -continue home pepcid 6. Drug use -UDS neg -past UDS + for cocaine; patient states in the past he smoked something that was laced with cocaine and he was not aware and it "messed him up". States he had never used drugs 7. Seizure disorder -aware, continue home meds 8. Recurrent falls -reported lower extremity weakness -Normal neuro exam, strength 09/11 -PT/OT eval and treat Dispo: anticipated LOS <48h, admit to tele obs for ACS r/o Diet: NPO @ midnight Fluids: KVO GI Prophylaxis: Pepcid DVT prophylaxis: Lovenox FMR H&P: Upper Level - Plan Date/Time: 01/27/20 1241 Lida Concepcion, have evaluated this patient and agree with findings/plan as outlined by sourcing intern resident. Pertinent changes/additions are listed here. HPI: 64 yo M with PMH of HFrEF (Echo 2019: EF 40-45%, Grade 1/3 diastolic dysfunction), AICD, CABG 2000 (last cath 2015, last stress test 2018), HTN, seizure disorder, PUD, cocaine abuse presents for substernal and left sided sharp chest pain that radiated to his left arm. Patient reports he has had constant chest pain for 2 weeks, that worsened today while he was at rest and was relieved with nitro. Patient denies using elicit substances. He denies fev er, chills; reports occasional cough with sputum. He has a significant smoking history, starting at age 16 and currently smoking 2 PPD. Patient also reported some weakness and falls, with pain to right thigh that has been going on recently. ED: CXR: Stable exam, no pneumonia. ICD in place. EKG: NSR, Nonspecific ST changes, consider lateral ischemia. Left atrial enlargement. T wave inversion V4-V6 and 1 and aVL consistent with lateral ischemia. No ST elevation/depression Labs: Trop neg x1. CBC WBC 4.3. CMP unremarkable. UDS neg. Coronavirus pending. Meds: Given 324 mg ASA PE: VSS General: Black male, in no acute distress Cardiac: RRR, no murmurs Lungs: Diffuse wheezing Abdomen: soft, NTTP, +BS Neuro: CN 2-12 grossly intact, Strength 5/5 bilat upper and lower extremities, no numbness bilat Psych: AOx3 A/P: ACS r/o, Atypical chest pain vs Angina -CXR stable, EKG shows nonspecific ST changes, HEART score 5 -Significant past cardiac history. HFrEF: Last echo (in 2018) showed EF 40-45%, Grade 1/3 diastolic dysfunction, inferolateral hypokinesis right ventricle, RV pressure of 35. AICD. CABG 1999. Last cath 2015. Last stress test 2018. -continue clopidogrel, atorvastatin, isosorbide, PRN nitro -LFTs, A1C, TSH -UDS neg -Consult cardiology, Dr. Lazaro. Appreciate recs. Likely COPD -Significant smoking history, wheezing on exam. Satting well on RA -Duonebs -Consider outpt spirometry HTN -Current BP 121/69. Resume home meds: amlodipine Seizure disorder -Continue home phenytoin PUD -Continue home famotidine Hx of cocaine abuse -UDS neg Deconditioning, Falls, Reported lower extremity weakness -Normal neuro exam, strength 5/5 -PT/OT eval and treat Diet: HH, NPO at midnight DVT ppx: lovenox GI ppx: famotidine PCP: Dr. Lo Code status: Full Dispo: Admit to tele obs, consult cardiology due to significant heart history. Appreciate recs. NPO at midnight for possible intervention.
[2020-01-27] MEDS ORDERED: Senokot S 8.6-50 MG TAB PO PRN (12:44)
[2020-01-27] MEDS ORDERED: Loperamide HCl 2 MG CAP PO PRN (12:44)
[2020-01-27] MEDS ORDERED: Bisacodyl 5 MG TAB PO PRN (12:44)
[2020-01-27] MEDS ORDERED: Acetaminophen 325 MG TAB PO PRN (12:44)
[2020-01-27] MEDS ORDERED: Ondansetron ODT 4 MG TAB PO PRN (12:44)
--- NOTE | 2020-01-27 13:27 | RAD ---
CHEST 1 VIEW PORTABLE: HISTORY: Chest pain and bilateral leg weakness. COMPARISON: 06/12/2019. FINDINGS: Postop midline sternotomy and left ICD. Old granulomatous disease. Heart size is normal. No conflu ent pneumonia, overt edema, or pleural effusion. IMPRESSION: No significant acute intrathoracic disease. Stable from prior study. POS: OFF
[2020-01-27] MEDS ORDERED: Aspirin Chewable 81 MG TAB ONE (13:38)
[2020-01-27 14:38] LABS: Amphetamine Not Detected (NotDetected); Barbiturates Screen Not Detected (NotDetected); Benzodiazepine Screen Not Detected (NotDetected); Cocaine Metabolite Screen Not Detected (NotDetected); Medtox Control Line Valid? VALID (VALID); Medtox Reader # READER 1; Methadone Not Detected (NotDetected); Methamphetamine Not Detected (NotDetected); Opiate Screen Not Detected (NotDetected); Oxycodone Screen Not Detected (NotDetected); Phencyclidine (PCP) Not Detected (NotDetected); THC/Cannabinoid Screen Not Detected (NotDetected); Tricyclic Screen Not Detected (NotDetected)
[2020-01-27 15:05] LABS: Hemoglobin A1c 4.8 % (4.0-6.0)
[2020-01-27 15:23] VITALS: BMI 24.9
[2020-01-27 16:00] LABS: Troponin I Less than 0.010 ng/mL (< 0.028)
[2020-01-27] MEDS ORDERED: Nitroglycerin 0.4 MG TAB 1 EACH SL PRN (16:46)
[2020-01-27 20:37] LABS: Troponin I 0.028 ng/mL (< 0.028)
[2020-01-27] MEDS: Atorvastatin Calcium 40 MG TAB PO SCH (20:52)
[2020-01-27] MEDS: Famotidine 20 MG TAB PO SCH (20:52)
[2020-01-27] MEDS: Carvedilol 6.25 MG TAB PO SCH (20:52)
--- NOTE | 2020-01-28 01:19 | CON ---
DATE OF CONSULTATION: HISTORY: Jeanmarie Richter is a 64-year-old black male, who has been followed by Dr. Garber for many years. In November 1999, he underwent CABG x4 with MENDEZ to the LAD and vein graft to the first diagonal, first obtuse marginal, and right posterior descending. The diagonal graft was anastomosed onto the obtuse marginal graft. In 2003, his right PDA graft was found to be occluded as well as the right coronary artery being occluded and he had inferior akinesis. He has had multiple cardiac catheterizations since then. The last was in May 2012 which showed an ejection fraction of 35%. The MENDEZ to the LAD was patent. Vein graft to the obtuse marginal and diagonal were patent, although aneurysmal. The distal right coronary artery filled retrograde from the circumflex and there was a 90% lesion in the collateral. His most recent evaluation was in February 2019 when he underwent adenosine Cardiolite testing. This revealed scarring of the inferior and inferolateral wall, but no reversible ischemia. Ejection fraction was 41%. Mr. Richter also has a single-chamber ICD, but states that he has not seen the oil boiler in 5 years. He now presents complaining of 2 weeks of chest discomfort. He feels a very sharp stabbing pain in his chest that is pleuritic in nature and will last up to an hour. He states that the pain will radiate to his right arm and left leg. He denies any shortness of breath, diaphoresis, nausea, or vomiting. Nitroglycerin seemed to improve the pain. PAST MEDICAL HISTORY: Coronary artery disease, ischemic cardiomyopathy, hypertension, history of seizures, hypercholesterolemia, GERD, history of gastric ulcers. He also has history of cocaine abuse with frequent urine drug screens being positive for cocaine, however, his drug screen is negative on this admission. MEDICATIONS: 1. Amlodipine 10 mg daily. 2. Aspirin 325 daily. 3. Atorvastatin 40 at bedtime. 4. Carvedilol 12.5 b.i.d. 5. Plavix 75 daily. 6. Pepcid 20 daily. 7. Isosorbide mononitrate 30 q.a.m. 8. Nitroglycerin p.r.n. 9. Dilantin 300 mg b.i.d. ALLERGIES: NONE. OPERATIONS: CABG, AICD placement. FAMILY HISTORY: Father had myocardial infarction and at age 52. SOCIAL HISTORY: He smoked in the past. REVIEW OF SYSTEMS: Ten-point review of systems is unremarkable. PHYSICAL EXAMINATION: VITAL SIGNS: 124/68, pulse of 54. HEENT: PERRL. NECK: Supple. CHEST: Clear. CARDIAC: S1 and S2 are normal without any S3, S4, or murmurs. ABDOMEN: Normal bowel sounds without tenderness or organomegaly. EXTREMITIES: Revealed no clubbing, cyanosis, or edema. NEUROLOGIC: Grossly intact. SKIN: Warm and dry. MUSCULOSKELETAL: Revealed no palpable chest wall tenderness. LABORATORY DATA: EKG revealed normal sinus rhythm with old inferior infarction, lateral T-wave changes. Cardiac enzymes were normal. Hemoglobin 14.9, hematocrit 44.2, white count 4300, platelets 171,000. Sodium 142, potassium 3.9, chloride 107, carbon dioxide 24, BUN 19, creatinine 1.27. TSH is normal. Urine drug screen this admission is negative. IMPRESSION: 1. Atypical chest discomfort with very sharp, somewhat pleuritic pain over the last 2 weeks with normal cardiac enzymes. 2. Status post coronary artery bypass grafting in 1999. On last catheterization in May 2012, the MENDEZ to the LAD and vein grafts to the diagonal and obtuse marginal were patent. The right posterior descending graft was found to be occluded in 2003. 3. Ischemic cardiomyopathy. 4. Status post single-chamber ICD placement. 5. Hypertension. 6. Hypercholesterolemia. 7. Former smoker. RECOMMENDATIONS: [facility] will be performed to evaluate his ICD. The last one was placed in 2015. He apparently has not followed up with EP since that time. Also, he will undergo adenosine Cardiolite testing for re-evaluation of his cardiac status, although clinically this pain does not appear to be cardiac in nature. Job ID: [id number]
--- NOTE | 2020-01-28 01:37 | HP ---
Please see the note from Dr. Yates, for which I agree. The patient was seen, evaluated, discussed, and examined with the resident. HISTORY OF PRESENT ILLNESS: This gentleman comes in with history of coronary artery disease and myocardial infarct in past, decreased ejection fraction, heart failure, with an EF of 45%. Comes in and states for about 2 weeks he has had chest discomfort, but then got worse today, pretty constant. Notes some relief on nitroglycerin. Some shortness of breath. No orthopnea. No edema recently. Heartburn issues. He is a smoker. History of cocaine abuse in the past. As he went up on the floor, he was a little better. Initial troponin clearly had been fine. EKG showing no acute infarct. PAST MEDICAL HISTORY: Per the resident's history and physical. PAST SURGICAL HISTORY: Per the resident's history and physical. SOCIAL HISTORY: Per the resident's history and physical. REVIEW OF SYSTEMS: Per the resident's history and physical. PHYSICAL EXAMINATION: VITAL SIGNS: Afebrile. Vital signs have been fine. Blood pressure a little bit up. GENERAL: Alert and oriented x3, in no apparent distress. No respiratory distress. ENT: Conjunctivae not pale, moist mucosa. NECK: No JVD. No lymphadenopathy or bruits. CHEST: Clear. HEART: Regular rate and rhythm. Cannot palpate the chest to reproduce pain. ABDOMEN: Benign. EXTREMITIES: No edema. ASSESSMENT: Chest pain with known coronary artery disease and reduced ejection fraction, congestive heart failure. PLAN: We will admit and get Cardiology involved, likely stress test and we will arrange for that. Otherwise, continue the Lovenox and blood pressure medications. Job ID: [id number]
[2020-01-28 05:23] LABS: Cardiac Risk 2.5 (Less than 4.5)
--- NOTE | 2020-01-28 05:47 | PDOC.FM ---
- Subjective Subjective: Patient resting comfortably in bed this morning. CP greatly improved. Able to ambulate without difficulty. Only complaint is leg weakness/pain especially of his quads, which has been persistent for some time. PT/OT has not seen patient yet. Denies PICKETT, SOB, abdominal pain, edema. - Objective MAR Reviewed: Yes Vital Signs & Weight: Vital Signs (12 hours) Temp Pulse Resp BP BP BP Pulse Ox 01/28/20 02:26 98.2 F 68 19 129/80 98 01/27/20 23:10 98.7 F 55 L 14 107/59 L 98 01/27/20 22:09 60 16 99 01/27/20 20:52 124/68 01/27/20 20:00 97.5 F L 54 L 14 124/68 96 01/27/20 18:31 57 L 16 99 Weight Weight 76.113 kg I&O: 01/26/20 01/27/20 01/28/20 06:59 06:59 06:59 Intake Total 640 Balance 640 Result Diagrams: 01/27/20 11:28 01/27/20 11:28 Phys Exam - Physical Examination Constitutional: NAD HEENT: moist MMs Neck: supple, full ROM Respiratory: no wheezing, clear to auscultation bilateral Cardiovascular: RRR, no significant murmur Gastrointestinal: soft, non-tender Musculoskeletal: no edema, pulses present weakness in b/l quads, non TTP Neurological: moves all 4 limbs Psychiatric: normal affect, A&O x 3 Skin: no rash, normal turgor Dx/Plan - Plan Plan: 1. Chest pain 2/2 ACS vs GERD vs MSK -acute episode of substernal sharp CP radiating to left arm at rest, associated dizziness, relieved with Nitro -ACS r/o with patient past history of heart disease, AICD in place -Trop neg x2, trend one more -EKG showed T wave abnormality, consider lateral ischemia -CXR neg for acute process -TSH, A1C, lipid panel WNL -Cardiology consulted, appreciate the recs: plan for Cardiolite stress test toda y and [facility] to evaluate ICD 2. CAD s/p CABG -CABG in 1999 as per patient -last cath in 2015 -used to follow with Dr. Garber, cardiology -stress test in 02/2019 showed abnormal myocardial perfusion study with persistent scarring in inferior and inferolateral left ventricular wall. 3. HFrEF -last echo was in 04/2019 which showed EF 40-45%, grade 1/3 diastolic dysfunction, inferior lateral hypokinesis, and right ventricular systolic pressure of 35 -continue home meds 4. HTN - vitals WNL -continue home meds 5. Ulcers -continue home pepcid 6. Drug use -UDS neg -past UDS + for cocaine; patient states in the past he smoked something that was laced with cocaine and he was not aware and it "messed him up". States he had never used drugs 7. Seizure disorder -aware, continue home meds 8. Recurrent falls -reported lower extremity weakness -Normal neuro exam, strength 09/11 -PT/OT eval and treat Dispo: anticipated LOS <48h, admit to tele obs for ACS r/o Diet: NPO @ midnight for stress test Fluids: KVO GI Prophylaxis: Pepcid DVT prophylaxis: Lovenox
[2020-01-28] MEDS ORDERED: Regadenoson 0.4 MG/5 ML SYRINGE ONE (09:24)
--- NOTE | 2020-01-28 11:03 | PRG ---
DATE OF SERVICE: 01/28/2020 Please see note from Dr. Yates, for which I agree. The patient was seen, evaluated, discussed, and examined with the residents by bedside. The patient is not having any chest pain. Having a little bit of thigh weakness and pain, but Cardiology was consulted yesterday. We are getting a stress test today for the chest pain and his AICD is being interrogated. Awaiting on a CK for the muscle pain and weakness. We will base plan on what the stress test shows. Job ID: [id number]
[2020-01-28 12:23] LABS: SARS-CoV-2 MS2 Positive; SARS-CoV-2 N Gene Negative; SARS-CoV-2 S Gene Negative; SARS-CoV-2 by NAA Not Detected (NotDetected); SARS-CoV-2 orf1ab Negative
[2020-01-28] MEDS: Famotidine 20 MG TAB PO SCH ×2 (13:00→20:41)
[2020-01-28] MEDS: Enoxaparin Sodium 40 MG/0.4 ML SYRINGE SC SCH (14:28)
[2020-01-28] MEDS: Carvedilol 6.25 MG TAB PO SCH ×2 (14:28→20:41)
[2020-01-28] MEDS: Amlodipine 10 MG TAB PO SCH (14:39)
[2020-01-28] MEDS: Clopidogrel Bisulfate 75 MG TAB PO SCH (14:40)
[2020-01-28] MEDS: Aspirin 325 MG TAB PO SCH (14:40)
--- NOTE | 2020-01-28 16:18 | NM ---
EXAM: NM Cardiac Stress W EF WF PROVIDED CLINICAL HISTORY: Atypical chest pain. History of myocardial infarction and coronary artery disease with history of rosi or CABG COMPARISON: 02/12/2019 FINDINGS: This examination was performed as a pharmacologic myocardial stress test after the administration of Lexiscan. As noted on the prior examination, there is a relatively fixed defect involving the inferior, inferol ateral, and inferoseptal left ventricular wall.. No significant reversible defect is seen. Gated images again demonstrate generalized hypokinesis with dyskinesis at the apex. There is decreased vent ricular wall thickening involving the inferior left ventricular wall. The calculated left ventricular ejection fraction is 26%. Left ventricular ejection fraction on the prior study was 41%. IMPRESSION: 1. Abnormal myocardial perfusion study with persistent scarring in the inferior, inferolateral, and i nferoseptal left ventricular wall without evidence of a significant reversible defect seen to suggest ischemia. 2. Generalized hypokinesis with dyskinesis at the apex. 3. Decreased LVEF of 26%. This has diminished from LVEF of 41% obtained on study in 2019.
[2020-01-28] MEDS: Atorvastatin Calcium 40 MG TAB PO SCH (20:41)
[2020-01-29 04:50] LABS: #Basophils 0.1 thou/uL (0.0-0.2); #Eosinphils 0.1 thou/uL (0.0-0.7); #Lymphocytes 1.3 thou/uL (1.20-3.40); #Monocytes 0.5 thou/uL (0.11-0.59); #Neutrophils 2.8 thou/uL (1.40-6.50); %Basophils 1.1 % (0.0-1.0); %Lymphocytes 27.6 % (21.0-51.0); %Monocytes 10.5 % (0.0-10.0); %Neutrophils 58.7 % (42.0-75.0); Hemoglobin 13.8 g/dL (14.0-18.0); Mean Corpuscular Hemoglobin 32.9 pg (27.0-31.0); Mean Corpuscular Volume 99.6 fL (78.0-98.0); Mean Platelet Volume 8.5 fL (7.4-10.4); Platelet Count 142 thou/uL (130-400); RBC Distribution Width 11.8 % (11.5-14.5); White Blood Cell (WBC) Count 4.8 thou/uL (4.8-10.8)
[2020-01-29 05:10] LABS: ALT (SGPT) 15 U/L (8-55); AST (SGOT) 14 U/L (5-34); Albumin 3.5 g/dL (3.4-4.8); Alkaline Phosphatase 80 U/L (40-110); Anion Gap 14 mmol/L (10-20); BUN (Urea Nitrogen) 21 mg/dL (8.4-25.7); Bilirubin, Total 0.4 mg/dL (0.2-1.2); Calc. Creatinine Clearance 72 mL/min (70-130); Calcium 8.4 mg/dL (7.8-10.44); Carbon Dioxide 21 mmol/L (23-31); Chloride 109 mmol/L (98-107); Estimated GFR-MDRD 79; Globulin 2.6 g/dL (2.4-3.5); Glucose 90 mg/dL (80-115); Potassium 3.9 mmol/L (3.5-5.1); Protein, Total 6.1 g/dL (5.8-8.1); Sodium 140 mmol/L (136-145)
--- NOTE | 2020-01-29 05:34 | PDOC.FM ---
- Subjective Subjective: Patient says he is feeling well. Denies headache, vision changes, chest pain, palpitations, SOB, nausea and abdominal pain. He reports thigh pain bilaterally for the past 3 weeks that is unchanged and currently being followed by PCP, Dr. Victoriano Lo. He has a follow up appointment on 01/31. - Objective MAR Reviewed: Yes Vital Signs & Weight: Vital Signs (12 hours) Temp Pulse Pulse Pulse Pulse Pulse Resp 01/29/20 00:28 52 L 12 01/28/20 22:20 60 16 01/28/20 20:41 01/28/20 20:00 97.7 F 54 L 22 H 01/28/20 18:35 16 01/28/20 18:07 59 L 69 86 63 BP BP BP BP BP BP Pulse Ox 01/29/20 00:28 106/64 95 01/28/20 22:20 96 01/28/20 20:41 103/60 01/28/20 20:00 103/60 98 01/28/20 18:35 01/28/20 18:07 97/58 L 99/60 90/63 118/71 Weight Weight 76.113 kg I&O: 01/27/20 01/28/20 01/29/20 06:59 06:59 06:59 Intake Total 1100 1080 Balance 1100 1080 Result Diagrams: 01/29/20 04:38 01/29/20 04:38 Phys Exam - Physical Examination Constitutional: NAD HEENT: moist MMs, sclera anicteric Neck: supple, full ROM Respiratory: no wheezing, clear to auscultation bilateral Cardiovascular: RRR, no significant murmur Gastrointestinal: soft, non-tender, positive bowel sounds Musculoskeletal: no edema, pulses present Neurological: non-focal, moves all 4 limbs Psychiatric: normal affect, A&O x 3 Skin: no rash, normal turgor Dx/Plan - Plan Plan: 1. Chest pain 2/2 ACS vs GERD vs MSK Acute episode of substernal sharp CP radiating to left arm at rest, associated dizziness, relieved with Nitro. ACS r/o with patient past history of heart disease, AICD in place. Trop neg x 3. EKG showed T wave abnormality, consider lateral ischemia. CXR neg for acute process. TSH, A1C, lipid panel WNL. -Cardiology consulted, appreciate the recs -Stress: persistent scarring of inferior, inferolateral, and inferoseptal left ventricule, hypokinesis, dyskinesis at apex, EF 26% -F/u [facility] to evaluate ICD -F/u Echo 2. CAD s/p CABG CABG in 1999 as per patient. Last cath in 2015. Used to follow with Dr. Garber, cardiology. Stress test in 02/2019 showed abnormal myocardial perfusion study with persistent scarring in inferior and inferolateral left ventricular wall. -Continue home meds 3. HFrEF Last echo was in 04/2019 which showed EF 40-45%, grade 1/3 diastolic dysfunction, inferior lateral hypokinesis, and right ventricular systolic pressure of 35 -continue home meds 4. HTN -vitals WNL -continue home meds 5. PUD -continue home pepcid 6. Drug use -multiple past UDS + for cocaine; patient states in the past he smoked something that was laced with cocaine and he was not aware and it "messed him up". States he had never used drugs -UDS negative on admission 7. Seizure disorder -aware, continue home meds 8. Recurrent falls Reported lower extremity weakness and thigh pain bilaterally for past 3 weeks. Normal neuro exam, strength 5/5 on admission. -PT/OT consult -Has f/u appointment with Dr. Victoriano Lo on 01/31 PCP: QIANA Lo Code: FULL GI Prophylaxis: Pepcid DVT prophylaxis: Lovenox Dispo: Home pending echo and cardiology recs Addendum - Attending - Attending Attestation Date/Time: 01/29/20 [id number] I personally evaluated the patient and discussed the management with Dr. [place]. I agree with the History, Examination, Assessment and Plan documented above with any addition or exceptions noted below.
[2020-01-29] MEDS: Amlodipine 10 MG TAB PO SCH (09:02)
[2020-01-29] MEDS: Carvedilol 6.25 MG TAB PO SCH ×2 (09:02→12:26)
[2020-01-29] MEDS: Clopidogrel Bisulfate 75 MG TAB PO SCH (09:02)
[2020-01-29] MEDS: Aspirin 325 MG TAB PO SCH (09:02)
[2020-01-29] MEDS: Famotidine 20 MG TAB PO SCH (09:03)
[2020-01-29] MEDS ORDERED: Lisinopril 5 MG TAB PO SCH (10:00)
[2020-01-29] MEDS ORDERED: Iopamidol-370 76% 500 ML 1 ML ONE (10:36)
--- NOTE | 2020-01-29 10:56 | PRG ---
DATE OF SERVICE: 01/29/2020 SUBJECTIVE: Mr. Richter is not having any chest pain. He complains of severe leg pain bilaterally, mostly his thighs. OBJECTIVE: VITAL SIGNS: His blood pressure 98/58, pulse 53 and regular. LUNGS: Clear. CARDIAC: Normal S1, normal S2. ABDOMEN: Soft, nontender. EXTREMITIES: Decreased pulses. I do not feel pedal pulses. Femoral pulses also diminished. The patient states he still smokes 2 packs of cigarettes per day. I did review the cardiac catheterization films. I do not think the patient is a candidate for any other intervention. Also, he has a large fixed defect as outlined in the stress test, but no ischemia. ASSESSMENT: 1. Severe coronary artery disease not amenable to any percutaneous intervention based on previous catheterization. 2. Continued smoking. 3. Peripheral vascular disease. PLAN: 1. Go ahead and do CT angio while he is here. His vasculature that is his main complaint now. 2. Stop amlodipine. 3. Resume HILARIO inhibitor, which he was on previously. Job ID: [id number]
--- NOTE | 2020-01-29 12:18 | CT ---
PERIPHERAL VASCULAR DISEASE: COMPARISON: CT aortic dissection protocol 04/08/2019. TECHNIQUE: Multiple contiguous axial images were obtained a CTA of the abdomen, pelvis, and bilateral lower extr emities with contrast. Sagittal and coronal 3-D MIP reformats were performed. FINDINGS: Lung bases: Presumed groundglass opacities are due to edema. Heart: Cardiomegaly. No significant pericardial fluid. Liver: Diffuse hypoattenuation suggesting hepatic steatosis. There is a focus of enhancement in the r ight hepatic lobe at the level of the hepatic dome which may represent a 1.7 x 1.5 cm flash filling hemangioma. No appreciable change.. Gallbladder: Unremarkable. Kidneys: Symmetric enhancement. Redemonstration of bilateral renal cortical cysts. No obstructive uro brennen.. Adrenal glands: Unremarkable. Spleen: Unremarkable. Pancreas: Unremarkable. Bowel: Unremarkable. Reproductive organs :Unremarkable. Retroperitoneum: No lymphadenopathy. Bones: Remote distal left fibula fracture. Abdominal aorta. Normal caliber without evidence of dissection or aneurysmal dilatation. Celiac trunk: Patent. SMA: Patent. JOSSUE: Short segment moderate stenosis in the proximal inferior mesenteric artery. Renal arteries: Unilateral right and 2 left renal arteries without significant atherosclerotic diseas e. Bilateral common iliac arteries: Unremarkable. Internal iliac arteries: Unremarkable. External iliac arteries: Unremarkable. Common femoral arteries: Unremarkable. Profunda femoral arteries: Unremarkable. Superficial femoral arteries: Unremarkable. Popliteal arteries: Unremarkable. Right lower extremity: There is significant atherosclerosis involving the right lower extremity arter ial system. No significant opacification of the lower extremity in part due to poor contrast bolus. Left lower extremity: There is significant atherosclerotic involving the left lower extremity arteria l system. No significant opacification of the lower extremity in part due to poor contrast bolus. IMPRESSION: Poor contrast opacification of the left or right lower ostomy arterial trifurcation which is in part due to the images out running the contrast bolus. There is evidence of scattered calcified plaque. Consider conventional angiography. Transcribed Date/Time: 01/29/2020 12:27 PM
[2020-01-29] MEDS: Enoxaparin Sodium 40 MG/0.4 ML SYRINGE SC SCH (12:26)
[2020-01-29 16:09] VITALS: BP 109/75; TEMP 97.8
[2020-01-30] MEDS ORDERED: Lisinopril 5 MG TAB PO SCH (09:00)
== END 2020-01-29 17:51 | disposition home or self-care (01) ==
LOC: ERS 11:12 → 2SW 12:25 → ERS 14:47
PROVIDERS: ADMIT Family Medicine; ATTEND Family Medicine
DX: R07.2 Precordial pain (principal); I11.0 Hypertensive heart disease with heart failure; I50.20 Unspecified systolic (congestive) heart failure; G40.909 Epilepsy, unspecified, not intractable, without status epilepticus; I25.10 Atherosclerotic heart disease of native coronary artery without angina pectoris; I25.2 Old myocardial infarction; F14.11 Cocaine abuse, in remission; E78.5 Hyperlipidemia, unspecified; E78.00 Pure hypercholesterolemia, unspecified; K27.9 Peptic ulcer, site unspecified, unspecified as acute or chronic, without hemorrhage or perforation; R53.1 Weakness; I25.5 Ischemic cardiomyopathy; K21.9 Gastro-esophageal reflux disease without esophagitis; F17.210 Nicotine dependence, cigarettes, uncomplicated; M79.652 Pain in left thigh; M79.651 Pain in right thigh; I73.9 Peripheral vascular disease, unspecified; Z79.02 Long term (current) use of antithrombotics/antiplatelets; Z79.82 Long term (current) use of aspirin; Z79.899 Other long term (current) drug therapy; Z95.1 Presence of aortocoronary bypass graft; Z95.810 Presence of automatic (implantable) cardiac defibrillator; Z20.828 Contact with and (suspected) exposure to other viral communicable diseases
CPT/HCPCS: 36415; 36416; 71045; 75635; 78452; 80053; 80061; 80306; 82550; 82607; 82746; 83036; 83690; 84443; 84484; 85025; 87635; 93005; 93017; 93306; 94640; 94760; A9500; G0378; J2785; J7620; Q9967; U0003

== ENCOUNTER 2021-01-23 22:45 | Observation (INO) | payer OTHER ==
[2021-01-23 23:46] LABS: ALT (SGPT) 13 U/L (8-55); AST (SGOT) 19 U/L (5-34); Albumin 3.7 g/dL (3.4-4.8); Alkaline Phosphatase 85 U/L (40-110); Anion Gap 14 mmol/L (10-20); BUN (Urea Nitrogen) 18 mg/dL (8.4-25.7); Calc. Creatinine Clearance 0 mL/min (70-130); Calcium 8.5 mg/dL (7.8-10.44); Carbon Dioxide 22 mmol/L (23-31); Chloride 108 mmol/L (98-107); Globulin 2.5 g/dL (2.4-3.5); Glucose 84 mg/dL (80-115); Potassium 3.5 mmol/L (3.5-5.1); Protein, Total 6.2 g/dL (5.8-8.1); Sodium 140 mmol/L (136-145)
[2021-01-23 23:48] LABS: #Eosinphils 0.1 thou/uL (0.0-0.7); #Lymphocytes 1.2 thou/uL (1.20-3.40); #Monocytes 0.7 thou/uL (0.11-0.59); #Neutrophils 5.1 thou/uL (1.40-6.50); %Basophils 0.4 % (0.0-1.0); %Eosinophils 0.9 % (0.0-10.0); %Lymphocytes 16.4 % (21.0-51.0); %Monocytes 9.6 % (0.0-10.0); %Neutrophils 72.6 % (42.0-75.0); Hemoglobin 13.2 g/dL (14.0-18.0); Mean Corpuscular HGB CONC 35.3 g/dL (32.0-36.0); Mean Corpuscular Hemoglobin 35.1 pg (27.0-31.0); Mean Corpuscular Volume 99.3 fL (78.0-98.0); Mean Platelet Volume 8.2 fL (7.4-10.4); Platelet Count 111 thou/uL (130-400); RBC Distribution Width 12.1 % (11.5-14.5); Red Blood Cell (RBC) Count 3.76 mill/uL (4.70-6.10); White Blood Cell (WBC) Count 7.1 thou/uL (4.8-10.8)
[2021-01-24 00:47] LABS: MDiff Complete? YES; Macrocytosis SLIGHT = 6-15 cells (100X) (0-5/hpf); Platelet Morphology Comment Appears Decreased
[2021-01-24] MEDS ORDERED: Ondansetron ODT 4 MG TAB PO PRN (01:42)
[2021-01-24] MEDS ORDERED: Acetaminophen 325 MG TAB PO PRN (01:42)
[2021-01-24] MEDS ORDERED: Nitroglycerin 0.4 MG TAB (25 Tab Bottle) SL PRN (01:45)
[2021-01-24 02:41] LABS: #Basophils 0.1 thou/uL (0.0-0.2); #Eosinphils 0.1 thou/uL (0.0-0.7); #Lymphocytes 1.4 thou/uL (1.20-3.40); #Monocytes 0.6 thou/uL (0.11-0.59); #Neutrophils 4.3 thou/uL (1.40-6.50); %Lymphocytes 21.5 % (21.0-51.0); %Monocytes 9.3 % (0.0-10.0); %Neutrophils 67.2 % (42.0-75.0); Hemoglobin 13.7 g/dL (14.0-18.0); Mean Corpuscular HGB CONC 35.7 g/dL (32.0-36.0); Mean Corpuscular Hemoglobin 35.5 pg (27.0-31.0); Mean Corpuscular Volume 99.2 fL (78.0-98.0); Mean Platelet Volume 8.8 fL (7.4-10.4); Platelet Count 110 thou/uL (130-400); RBC Distribution Width 12.1 % (11.5-14.5); Red Blood Cell (RBC) Count 3.86 mill/uL (4.70-6.10); White Blood Cell (WBC) Count 6.4 thou/uL (4.8-10.8)
[2021-01-24 02:52] LABS: Cardiac Risk 1.9 (Less than 4.5)
[2021-01-24 02:56] LABS: Troponin I 0.018 ng/mL (< 0.028)
[2021-01-24] MEDS ORDERED: Enoxaparin Sodium 80 MG/0.8 ML SYRINGE ONE (03:00)
[2021-01-24 03:17] LABS: ALT (SGPT) 13 U/L (8-55); AST (SGOT) 19 U/L (5-34); Albumin 3.6 g/dL (3.4-4.8); Alkaline Phosphatase 87 U/L (40-110); Anion Gap 14 mmol/L (10-20); BUN (Urea Nitrogen) 16 mg/dL (8.4-25.7); Bilirubin, Total 1.2 mg/dL (0.2-1.2); Calc. Creatinine Clearance 0 mL/min (70-130); Calcium 8.7 mg/dL (7.8-10.44); Carbon Dioxide 23 mmol/L (23-31); Chloride 107 mmol/L (98-107); Globulin 2.6 g/dL (2.4-3.5); Glucose 85 mg/dL (80-115); Potassium 3.4 mmol/L (3.5-5.1); Protein, Total 6.2 g/dL (5.8-8.1); Sodium 141 mmol/L (136-145)
[2021-01-24 06:41] LABS: Troponin I 0.025 ng/mL (< 0.028)
[2021-01-24] MEDS: Nicotine 21 MG PATCH TD SCH (08:01)
[2021-01-24 08:12] VITALS: BMI 22.9
[2021-01-24] MEDS: Aspirin 325 MG TAB PO SCH (09:31)
[2021-01-24] MEDS: Clopidogrel Bisulfate 75 MG TAB PO SCH (09:32)
[2021-01-24] MEDS: Amlodipine 10 MG TAB PO SCH (09:33)
[2021-01-24] MEDS ORDERED: Docusate 100 MG CAP PO PRN (10:33)
[2021-01-24 17:13] LABS: SARS-CoV-2 PCR by NAA Not Detected (NotDetected)
[2021-01-24] MEDS: Atorvastatin Calcium 40 MG TAB PO SCH (21:47)
[2021-01-25] MEDS: Nicotine 21 MG PATCH TD SCH ×2 (02:40→11:10)
[2021-01-25] MEDS: Clopidogrel Bisulfate 75 MG TAB PO SCH (08:38)
[2021-01-25] MEDS: Amlodipine 10 MG TAB PO SCH (08:38)
[2021-01-25] MEDS: Polyethylene Glycol 3350 17 GM Packet PO SCH (08:38)
[2021-01-25] MEDS: Aspirin 325 MG TAB PO SCH (08:38)
[2021-01-25] MEDS ORDERED: Milk Of Magnesia 30 ML UDCUP PO SCH (15:30)
[2021-01-25] MEDS ORDERED: Potassium Chloride 20 MEQ TAB PO SCH (15:45)
[2021-01-25] MEDS: Atorvastatin Calcium 40 MG TAB PO SCH (21:00)
[2021-01-25 23:26] LABS: Amphetamine Not Detected (NotDetected); Barbiturates Screen Detected (NotDetected); Benzodiazepine Screen Not Detected (NotDetected); Cocaine Metabolite Screen Detected (NotDetected); Methadone Not Detected (NotDetected); Methamphetamine Not Detected (NotDetected); Opiate Screen Not Detected (NotDetected); Oxycodone Screen Not Detected (NotDetected); Phencyclidine (PCP) Not Detected (NotDetected); THC/Cannabinoid Screen Not Detected (NotDetected); Tricyclic Screen Not Detected (NotDetected)
[2021-01-26] MEDS: Nicotine 21 MG PATCH TD SCH (02:23)
[2021-01-26] MEDS: Aspirin 325 MG TAB PO SCH (10:12)
[2021-01-26] MEDS: Amlodipine 10 MG TAB PO SCH (10:12)
[2021-01-26] MEDS: Clopidogrel Bisulfate 75 MG TAB PO SCH (10:13)
[2021-01-26] MEDS: Polyethylene Glycol 3350 17 GM Packet PO SCH (10:13)
[2021-01-26] MEDS ORDERED: Regadenoson 0.4 MG/5 ML SYRINGE ONE (15:04)
[2021-01-26 16:42] VITALS: TEMP 97.5
[2021-01-26] MEDS ORDERED: Carvedilol 6.25 MG TAB PO SCH (17:00)
[2021-01-26 17:21] VITALS: BP 141/87
== END 2021-01-26 23:11 | disposition home or self-care (01) ==
LOC: ERS 22:45 → 2NO 01-24 00:52
PROVIDERS: ADMIT Family Medicine; ATTEND Family Medicine
DX: I25.118 Atherosclerotic heart disease of native coronary artery with other forms of angina pectoris (principal); I11.0 Hypertensive heart disease with heart failure; I50.22 Chronic systolic (congestive) heart failure; F17.210 Nicotine dependence, cigarettes, uncomplicated; F14.10 Cocaine abuse, uncomplicated; F13.10 Sedative, hypnotic or anxiolytic abuse, uncomplicated; G40.909 Epilepsy, unspecified, not intractable, without status epilepticus; K27.9 Peptic ulcer, site unspecified, unspecified as acute or chronic, without hemorrhage or perforation; I25.2 Old myocardial infarction; E78.5 Hyperlipidemia, unspecified; D53.9 Nutritional anemia, unspecified; D69.6 Thrombocytopenia, unspecified; I25.5 Ischemic cardiomyopathy; E78.00 Pure hypercholesterolemia, unspecified; Z91.14 Patient's other noncompliance with medication regimen; Z79.02 Long term (current) use of antithrombotics/antiplatelets; Z79.82 Long term (current) use of aspirin; Z79.899 Other long term (current) drug therapy; Z95.1 Presence of aortocoronary bypass graft; Z95.810 Presence of automatic (implantable) cardiac defibrillator; Z20.822 Contact with and (suspected) exposure to COVID-19
CPT/HCPCS: 36415; 36416; 71045; 78452; 80053; 80061; 80185; 80306; 83036; 83880; 84443; 84484; 85025; 93005; 93017; 94760; 96372; A9500; G0378; J1650; J2785; U0003; U0005

== ENCOUNTER 2021-10-06 04:01 | Inpatient (IN) | payer MEDICARE, MEDICAID ==
[2021-10-06] MEDS ORDERED: Nitroglycerin 2% Ointment 1 INCH/1 GM Packet ONE (04:14)
[2021-10-06] MEDS ORDERED: Lorazepam 2 MG/ML VIAL ONE (04:19)
[2021-10-06 04:28] LABS: #Eosinphils 0.1 thou/uL (0.0-0.7); #Lymphocytes 0.9 thou/uL (1.20-3.40); #Monocytes 0.5 thou/uL (0.11-0.59); #Neutrophils 4.9 thou/uL (1.40-6.50); %Basophils 0.2 % (0.0-1.0); %Lymphocytes 14.4 % (21.0-51.0); %Neutrophils 76.4 % (42.0-75.0); Hemoglobin 14.9 g/dL (14.0-18.0); Mean Corpuscular HGB CONC 32.8 g/dL (32.0-36.0); Mean Corpuscular Hemoglobin 33.7 pg (27.0-31.0); Mean Platelet Volume 8.7 fL (7.4-10.4); Platelet Count 129 thou/uL (130-400); Red Blood Cell (RBC) Count 4.43 mill/uL (4.70-6.10); White Blood Cell (WBC) Count 6.4 thou/uL (4.8-10.8)
[2021-10-06] MEDS ORDERED: Furosemide 40 MG/4 ML VIAL ONE (04:45)
[2021-10-06 04:51] LABS: ALT (SGPT) 34 U/L (8-55); AST (SGOT) 35 U/L (5-34); Albumin 3.9 g/dL (3.4-4.8); Alkaline Phosphatase 103 U/L (40-110); Anion Gap 15 mmol/L (10-20); BUN (Urea Nitrogen) 16 mg/dL (8.4-25.7); Bilirubin, Total 0.9 mg/dL (0.2-1.2); Calc. Creatinine Clearance 0 mL/min (70-130); Calcium 8.7 mg/dL (7.8-10.44); Carbon Dioxide 22 mmol/L (23-31); Chloride 108 mmol/L (98-107); Globulin 3.2 g/dL (2.4-3.5); Glucose 179 mg/dL (80-115); Potassium 3.7 mmol/L (3.5-5.1); Protein, Total 7.1 g/dL (5.8-8.1); Sodium 141 mmol/L (136-145)
[2021-10-06 05:16] LABS: CKMB 7.1 ng/mL (0-6.6)
[2021-10-06] MEDS ORDERED: Nitroglycerin 0.4 MG TAB (25 Tab Bottle) SL PRN ×2 (05:51→10:34)
[2021-10-06] MEDS ORDERED: Acetaminophen 325 MG TAB PO PRN (05:51)
[2021-10-06 06:12] LABS: Bilirubin Negative (Negative); Blood, Urine Negative (Negative); Clarity Clear (Clear); Glucose, Urine (Dipstick) Normal (Negative); Ketone, Urine Negative (Negative); Leukocyte Negative Leu/uL (Negative); Nitrite Negative (Negative); Protein, Urine (Dipstick) Negative (Neg-Trace); Specific Gravity, Urine 1.008 (1.002-1.036); Urobilinogen Normal mg/dL (Less than 2)
[2021-10-06 06:21] LABS: Amphetamine Not Detected (NotDetected); Barbiturates Screen Not Detected (NotDetected); Benzodiazepine Screen Not Detected (NotDetected); Cocaine Metabolite Screen Not Detected (NotDetected); Methadone Not Detected (NotDetected); Methamphetamine Not Detected (NotDetected); Opiate Screen Not Detected (NotDetected); Oxycodone Screen Not Detected (NotDetected); Phencyclidine (PCP) Not Detected (NotDetected); THC/Cannabinoid Screen Not Detected (NotDetected); Tricyclic Screen Not Detected (NotDetected)
[2021-10-06 08:09] LABS: Troponin I 1.032 ng/mL (< 0.028)
[2021-10-06] MEDS ORDERED: Heparin 25,000 units/D5W 500 ML IVPB SCH (08:45)
[2021-10-06] MEDS ORDERED: Heparin 5,000 UNITS/ML VIAL SC SCH (09:00)
[2021-10-06 10:38] LABS: Hemoglobin 14.7 g/dL (14.0-18.0); Platelet Count 124 thou/uL (130-400)
[2021-10-06] MEDS ORDERED: Carvedilol 6.25 MG TAB PO SCH (10:45)
[2021-10-06] MEDS ORDERED: Clopidogrel Bisulfate 300 MG TAB PO SCH (10:45)
[2021-10-06] MEDS ORDERED: Amlodipine 10 MG TAB PO SCH (10:45)
[2021-10-06] MEDS ORDERED: Communication Order-Pharmacy FS SCH (11:00)
[2021-10-06 11:20] LABS: Troponin I 1.999 ng/mL (< 0.028)
[2021-10-06] MEDS: Heparin 10,000 UNITS/ 10 ML VIAL SLOW IVP SCH ×2 (11:42→18:13)
[2021-10-06 17:12] LABS: SARS-CoV-2 PCR by NAA Not Detected (NotDetected)
[2021-10-06] MEDS: Carvedilol 6.25 MG TAB PO SCH (17:31)
[2021-10-06] MEDS ORDERED: Non-Formulary Item 1 EACH (Carvedilol [Coreg] 12.5 MG Tab) PO SCH (21:00)
[2021-10-06] MEDS: Atorvastatin Calcium 40 MG TAB PO SCH (21:28)
[2021-10-06] MEDS: Nitroglycerin 2% Ointment 1 INCH/1 GM Packet TOP SCH (21:28)
[2021-10-07 05:23] LABS: Hemoglobin A1c 4.5 % (4.0-6.0)
[2021-10-07 05:28] LABS: Anion Gap 11 mmol/L (10-20); BUN (Urea Nitrogen) 20 mg/dL (8.4-25.7); Calc. Creatinine Clearance 63 mL/min (70-130); Calcium 8.6 mg/dL (7.8-10.44); Carbon Dioxide 27 mmol/L (23-31); Cardiac Risk 1.9 (Less than 4.5); Chloride 107 mmol/L (98-107); Cholesterol 166 mg/dl (< 200 Desired); Glucose 104 mg/dL (80-115); HDL Cholesterol 87 mg/dL (>60 Neg Risk); LDL Cholesterol, Calculated 68 mg/dL; Potassium 3.6 mmol/L (3.5-5.1); Sodium 141 mmol/L (136-145); Triglycerides 55 mg/dL (Less than 150)
[2021-10-07] MEDS ORDERED: Sodium Chloride 0.9% 1,000 ML IV SCH (06:00)
[2021-10-07] MEDS: Carvedilol 6.25 MG TAB PO SCH ×2 (06:29→17:22)
[2021-10-07] MEDS: Aspirin 325 mg Enteric Coated Tablet PO SCH (06:30)
[2021-10-07] MEDS: Nitroglycerin 2% Ointment 1 INCH/1 GM Packet TOP SCH ×4 (06:30→22:18)
[2021-10-07] MEDS: Amlodipine 10 MG TAB PO SCH (06:30)
[2021-10-07] MEDS ORDERED: Furosemide 40 MG/4 ML VIAL ONE (08:22)
[2021-10-07] MEDS ORDERED: Furosemide 40 MG/4 ML VIAL SLOW IVP SCH (08:30)
[2021-10-07 08:48] LABS: PTT 143.1 sec (22.9-36.1)
[2021-10-07] MEDS ORDERED: Clopidogrel Bisulfate 75 MG TAB PO SCH (09:00)
[2021-10-07] MEDS: Enoxaparin Sodium 80 MG/0.8 ML SYRINGE SC SCH ×2 (09:28→20:47)
[2021-10-07] MEDS ORDERED: Potassium Chloride 20 MEQ TAB PO SCH (12:00)
[2021-10-07] MEDS: Furosemide 40 MG/4 ML VIAL SLOW IVP SCH (13:29)
[2021-10-07] MEDS ORDERED: Polyethylene Glycol 3350 17 GM Packet PO PRN (20:06)
[2021-10-07] MEDS: Atorvastatin Calcium 40 MG TAB PO SCH (20:47)
[2021-10-08 05:03] LABS: #Eosinphils 0.1 thou/uL (0.0-0.7); #Lymphocytes 1.5 thou/uL (1.20-3.40); #Monocytes 0.6 thou/uL (0.11-0.59); #Neutrophils 3.6 thou/uL (1.40-6.50); %Basophils 0.3 % (0.0-1.0); %Eosinophils 1.6 % (0.0-10.0); %Lymphocytes 26.1 % (21.0-51.0); %Monocytes 10.4 % (0.0-10.0); %Neutrophils 61.7 % (42.0-75.0); Mean Corpuscular HGB CONC 32.3 g/dL (32.0-36.0); Mean Platelet Volume 9.3 fL (7.4-10.4); Platelet Count 112 thou/uL (130-400); RBC Distribution Width 11.9 % (11.5-14.5); Red Blood Cell (RBC) Count 4.13 mill/uL (4.70-6.10); White Blood Cell (WBC) Count 5.8 thou/uL (4.8-10.8)
[2021-10-08 05:31] LABS: Anion Gap 11 mmol/L (10-20); BUN (Urea Nitrogen) 21 mg/dL (8.4-25.7); Calc. Creatinine Clearance 63 mL/min (70-130); Calcium 8.3 mg/dL (7.8-10.44); Carbon Dioxide 29 mmol/L (23-31); Chloride 104 mmol/L (98-107); Glucose 96 mg/dL (80-115); Potassium 3.5 mmol/L (3.5-5.1); Sodium 140 mmol/L (136-145)
[2021-10-08] MEDS: Nitroglycerin 2% Ointment 1 INCH/1 GM Packet TOP SCH ×2 (06:11→14:24)
[2021-10-08] MEDS: Furosemide 40 MG/4 ML VIAL SLOW IVP SCH ×2 (06:11→14:24)
[2021-10-08] MEDS: Aspirin 325 mg Enteric Coated Tablet PO SCH (09:03)
[2021-10-08] MEDS: Carvedilol 6.25 MG TAB PO SCH ×2 (09:04→17:57)
[2021-10-08] MEDS: Amlodipine 10 MG TAB PO SCH (09:05)
[2021-10-08] MEDS: Enoxaparin Sodium 80 MG/0.8 ML SYRINGE SC SCH ×2 (09:08→20:37)
[2021-10-08] MEDS ORDERED: Communication Order-Pharmacy FS SCH (09:30)
[2021-10-08] MEDS ORDERED: Potassium Chloride 20 MEQ TAB PO SCH (12:00)
[2021-10-08] MEDS: Senokot S 8.6-50 MG TAB PO SCH (20:37)
[2021-10-08] MEDS: Atorvastatin Calcium 40 MG TAB PO SCH (20:37)
[2021-10-09] MEDS: Nitroglycerin 2% Ointment 1 INCH/1 GM Packet TOP SCH ×3 (02:37→14:26)
[2021-10-09 05:13] LABS: Anion Gap 10 mmol/L (10-20); BUN (Urea Nitrogen) 25 mg/dL (8.4-25.7); Calc. Creatinine Clearance 57 mL/min (70-130); Carbon Dioxide 31 mmol/L (23-31); Chloride 105 mmol/L (98-107); Glucose 99 mg/dL (80-115); Potassium 3.7 mmol/L (3.5-5.1); Sodium 142 mmol/L (136-145)
[2021-10-09] MEDS: Carvedilol 6.25 MG TAB PO SCH ×2 (05:25→16:46)
[2021-10-09] MEDS: Amlodipine 10 MG TAB PO SCH (05:26)
[2021-10-09] MEDS: Aspirin 325 mg Enteric Coated Tablet PO SCH (05:26)
[2021-10-09] MEDS ORDERED: Sodium Chloride 0.9% 1,000 ML IV SCH (06:00)
[2021-10-09] MEDS ORDERED: Fentanyl 100 MCG/2 ML VIAL ONE (09:54)
[2021-10-09] MEDS ORDERED: Midazolam HCl 2 mg/2 ml Vial ONE (09:54)
[2021-10-09 10:26] VITALS: BMI 24.0
[2021-10-09] MEDS ORDERED: Acetaminophen/Codeine 30-300mg Tablet PO PRN ×2 (10:57)
[2021-10-09] MEDS ORDERED: Sodium Chloride 0.9% 200 ML IV PRN (10:57)
[2021-10-09] MEDS ORDERED: Nitroglycerin 0.4 MG TAB (25 Tab Bottle) SL PRN (10:57)
[2021-10-09] MEDS: Senokot S 8.6-50 MG TAB PO SCH ×2 (11:47→19:58)
[2021-10-09] MEDS: Atorvastatin Calcium 40 MG TAB PO SCH (19:58)
[2021-10-10 05:20] LABS: Anion Gap 12 mmol/L (10-20); BUN (Urea Nitrogen) 24 mg/dL (8.4-25.7); Calc. Creatinine Clearance 62 mL/min (70-130); Calcium 8.4 mg/dL (7.8-10.44); Carbon Dioxide 26 mmol/L (23-31); Chloride 106 mmol/L (98-107); Glucose 101 mg/dL (80-115); Potassium 3.8 mmol/L (3.5-5.1); Sodium 140 mmol/L (136-145)
[2021-10-10] MEDS ORDERED: Furosemide 40 MG TAB PO SCH (07:30)
[2021-10-10] MEDS ORDERED: Potassium Chloride 20 MEQ TAB PO SCH (08:00)
[2021-10-10 08:13] VITALS: BP 131/82; TEMP 97.3
[2021-10-10] MEDS: Carvedilol 6.25 MG TAB PO SCH (08:29)
[2021-10-10] MEDS: Senokot S 8.6-50 MG TAB PO SCH (08:33)
[2021-10-10] MEDS ORDERED: Amlodipine 10 MG TAB PO SCH (09:00)
[2021-10-10] MEDS ORDERED: Aspirin 81 mg Enteric Coated Tablet PO SCH (09:00)
[2021-10-10] MEDS ORDERED: Clopidogrel Bisulfate 75 MG TAB PO SCH (09:00)
== END 2021-10-10 10:30 | disposition home or self-care (01) | DRG 280 ==
LOC: ERS 04:01 → ERHOLD 05:16 → 2SW 08:34 → OBSVTOIN 10-07 15:37
PROVIDERS: ADMIT Hospitalist; ATTEND Hospitalist
PROC: 4A023N7 Measurement of Cardiac Sampling and Pressure, Left Heart, Percutaneous Approach (ICD-10-PCS; principal; 2021-10-09)
PROC: B2111ZZ Fluoroscopy of Multiple Coronary Arteries using Low Osmolar Contrast (ICD-10-PCS; 2021-10-09)
PROC: B2131ZZ Fluoroscopy of Multiple Coronary Artery Bypass Grafts using Low Osmolar Contrast (ICD-10-PCS; 2021-10-09)
PROC: B2151ZZ Fluoroscopy of Left Heart using Low Osmolar Contrast (ICD-10-PCS; 2021-10-09)
DX: I11.0 Hypertensive heart disease with heart failure (principal); Z20.822 Contact with and (suspected) exposure to COVID-19; Z23 Encounter for immunization; I50.43 Acute on chronic combined systolic (congestive) and diastolic (congestive) heart failure; I21.4 Non-ST elevation (NSTEMI) myocardial infarction; J96.01 Acute respiratory failure with hypoxia; I25.10 Atherosclerotic heart disease of native coronary artery without angina pectoris; F17.210 Nicotine dependence, cigarettes, uncomplicated; G40.909 Epilepsy, unspecified, not intractable, without status epilepticus; I25.2 Old myocardial infarction; F14.10 Cocaine abuse, uncomplicated; R73.9 Hyperglycemia, unspecified; I25.5 Ischemic cardiomyopathy; Z79.899 Other long term (current) drug therapy; Z79.82 Long term (current) use of aspirin; Z79.02 Long term (current) use of antithrombotics/antiplatelets; Z95.5 Presence of coronary angioplasty implant and graft; Z95.1 Presence of aortocoronary bypass graft; Z95.810 Presence of automatic (implantable) cardiac defibrillator; Z82.49 Family history of ischemic heart disease and other diseases of the circulatory system; Z71.6 Tobacco abuse counseling
CPT/HCPCS: 36415; 71045; 80048; 80053; 80061; 80306; 81003; 82553; 83036; 83880; 84443; 84484; 85025; 85730; 90471; 90732; 93005; 93306; 93459; 93798; 94760; 96374; 96375; 97139; 99152; 99153; G0009; J1644; J1650; J1940; J2060; J2250; J3010; J7050; U0003; U0005

== ENCOUNTER 2022-01-05 23:33 | Inpatient (IN) | payer MEDICARE, MEDICAID ==
[2022-01-06 00:29] LABS: Hemoglobin 12.3 g/dL (14.0-18.0); Mean Corpuscular HGB CONC 35.3 g/dL (32.0-36.0); Mean Corpuscular Hemoglobin 34.8 pg (27.0-31.0); Mean Corpuscular Volume 98.7 fL (78.0-98.0); Red Blood Cell (RBC) Count 3.53 mill/uL (4.70-6.10); White Blood Cell (WBC) Count 6.7 thou/uL (4.8-10.8)
[2022-01-06 00:30] LABS: ALT (SGPT) 13 U/L (8-55); AST (SGOT) 19 U/L (5-34); Albumin 3.3 g/dL (3.4-4.8); Alkaline Phosphatase 83 U/L (40-110); Anion Gap 16 mmol/L (10-20); BUN (Urea Nitrogen) 15 mg/dL (8.4-25.7); Bilirubin, Total 0.3 mg/dL (0.2-1.2); Calc. Creatinine Clearance 0 mL/min (70-130); Calcium 7.7 mg/dL (7.8-10.44); Carbon Dioxide 19 mmol/L (23-31); Chloride 103 mmol/L (98-107); Estimated GFR 53; Globulin 2.4 g/dL (2.4-3.5); Glucose 99 mg/dL (80-115); Potassium 3.2 mmol/L (3.5-5.1); Protein, Total 5.7 g/dL (5.8-8.1); Sodium 135 mmol/L (136-145)
[2022-01-06 00:42] LABS: #Eosinphils 0.1 thou/uL (0.0-0.7); #Lymphocytes 1.6 thou/uL (1.20-3.40); #Monocytes 0.5 thou/uL (0.11-0.59); #Neutrophils 4.4 thou/uL (1.40-6.50); %Basophils 0.2 % (0.0-1.0); %Eosinophils 1.8 % (0.0-10.0); %Monocytes 8.1 % (0.0-10.0); %Neutrophils 65.9 % (42.0-75.0); Mean Platelet Volume 8.5 fL (7.4-10.4); Platelet Count 112 thou/uL (130-400); Platelet Morphology Comment Appears Decreased
[2022-01-06 05:09] LABS: Troponin I Less than 0.010 ng/mL (< 0.028)
[2022-01-06] MEDS ORDERED: Ondansetron PF 4 MG/2 ML Vial IVP PRN (05:20)
[2022-01-06] MEDS ORDERED: Acetaminophen 325 MG TAB PO PRN (05:20)
[2022-01-06] MEDS ORDERED: Ondansetron ODT 4 MG TAB PO PRN (05:20)
[2022-01-06] MEDS ORDERED: Acetaminophen 650 MG Suppository PR PRN (05:20)
[2022-01-06] MEDS ORDERED: Potassium Chloride 20 MEQ TAB PO SCH (06:45)
[2022-01-06] MEDS ORDERED: Electrolyte Replacement Protocol 1 EACH FS SCH (06:45)
[2022-01-06] MEDS ORDERED: hydrALAZINE 20 MG/ML VIAL SLOW IVP PRN (06:47)
[2022-01-06] MEDS ORDERED: Furosemide 40 MG/4 ML VIAL SLOW IVP SCH (07:00)
[2022-01-06] MEDS ORDERED: Aspirin 81 mg Enteric Coated Tablet PO SCH (07:00)
[2022-01-06 07:39] LABS: Anion Gap 15 mmol/L (10-20); BUN (Urea Nitrogen) 13 mg/dL (8.4-25.7); Calc. Creatinine Clearance 0 mL/min (70-130); Calcium 8.2 mg/dL (7.8-10.44); Carbon Dioxide 23 mmol/L (23-31); Chloride 105 mmol/L (98-107); Estimated GFR 70; Glucose 94 mg/dL (80-115); Magnesium 1.8 mg/dL (1.6-2.6); Potassium 3.3 mmol/L (3.5-5.1); Sodium 140 mmol/L (136-145)
[2022-01-06 07:43] LABS: Troponin I 0.014 ng/mL (< 0.028)
[2022-01-06] MEDS ORDERED: Magnesium 2 GM/50 ML(in water) 2 GM in Premix Bag 1 BAG IVPB SCH (08:00)
[2022-01-06] MEDS ORDERED: Magnesium 2 GM/50 ML BAG (IN WATER) ONE (08:40)
[2022-01-06] MEDS ORDERED: Furosemide 40 MG/4 ML VIAL ONE (08:40)
[2022-01-06 08:47] LABS: SARS-CoV-2 NAA Rapid Test Not Detected (NotDetected)
[2022-01-06] MEDS: Clopidogrel Bisulfate 75 MG TAB PO SCH (18:51)
[2022-01-06] MEDS: Carvedilol 6.25 MG TAB PO SCH ×2 (18:51→20:53)
[2022-01-06] MEDS: Enoxaparin Sodium 40 MG/0.4 ML SYRINGE SC SCH (18:57)
[2022-01-06] MEDS: Varenicline Tartrate 0.5 MG TAB PO SCH (19:16)
[2022-01-06] MEDS: Atorvastatin Calcium 40 MG TAB PO SCH (20:53)
[2022-01-07] MEDS ORDERED: Spironolactone 25 MG TAB PO SCH (08:45)
[2022-01-07] MEDS ORDERED: Potassium Chloride 20 MEQ TAB PO SCH ×2 (08:45→12:00)
[2022-01-07] MEDS: Varenicline Tartrate 0.5 MG TAB PO SCH ×2 (09:02→18:44)
[2022-01-07] MEDS: Carvedilol 6.25 MG TAB PO SCH ×2 (09:03→21:13)
[2022-01-07] MEDS: Aspirin 81 mg Enteric Coated Tablet PO SCH (09:03)
[2022-01-07] MEDS: Clopidogrel Bisulfate 75 MG TAB PO SCH (09:04)
[2022-01-07] MEDS: Enoxaparin Sodium 40 MG/0.4 ML SYRINGE SC SCH (09:05)
[2022-01-07] MEDS ORDERED: Furosemide 20 MG/2 ML VIAL SLOW IVP SCH (12:00)
[2022-01-07 12:25] VITALS: BMI 23.1
[2022-01-07] MEDS ORDERED: Iopamidol 370 76% 100 ML VIAL ONE (14:04)
[2022-01-07] MEDS: Atorvastatin Calcium 40 MG TAB PO SCH (21:04)
[2022-01-07 21:09] LABS: #Eosinphils 0.1 thou/uL (0.0-0.7); #Lymphocytes 1.3 thou/uL (1.20-3.40); #Monocytes 0.6 thou/uL (0.11-0.59); #Neutrophils 3.7 thou/uL (1.40-6.50); %Basophils 0.2 % (0.0-1.0); %Eosinophils 2.6 % (0.0-10.0); %Lymphocytes 22.2 % (21.0-51.0); %Monocytes 10.5 % (0.0-10.0); %Neutrophils 64.5 % (42.0-75.0); Hemoglobin 13.4 g/dL (14.0-18.0); Mean Corpuscular HGB CONC 34.1 g/dL (32.0-36.0); Mean Corpuscular Volume 99.9 fL (78.0-98.0); Mean Platelet Volume 8.6 fL (7.4-10.4); Platelet Count 113 thou/uL (130-400); RBC Distribution Width 11.9 % (11.5-14.5); Red Blood Cell (RBC) Count 3.95 mill/uL (4.70-6.10); White Blood Cell (WBC) Count 5.7 thou/uL (4.8-10.8)
[2022-01-07 21:27] LABS: Anion Gap 14 mmol/L (10-20); BUN (Urea Nitrogen) 21 mg/dL (8.4-25.7); Calc. Creatinine Clearance 64 mL/min (70-130); Calcium 8.6 mg/dL (7.8-10.44); Carbon Dioxide 24 mmol/L (23-31); Cardiac Risk 1.9 (Less than 4.5); Chloride 106 mmol/L (98-107); Cholesterol 141 mg/dl (< 200 Desired); Estimated GFR 70; Glucose 96 mg/dL (80-115); HDL Cholesterol 73 mg/dL (>60 Neg Risk); LDL Cholesterol, Calculated 52 mg/dL; Potassium 4.1 mmol/L (3.5-5.1); Sodium 140 mmol/L (136-145); Triglycerides 80 mg/dL (Less than 150)
[2022-01-08 04:48] LABS: #Eosinphils 0.2 thou/uL (0.0-0.7); #Lymphocytes 1.3 thou/uL (1.20-3.40); #Monocytes 0.5 thou/uL (0.11-0.59); #Neutrophils 3.5 thou/uL (1.40-6.50); %Basophils 0.7 % (0.0-1.0); %Lymphocytes 24.2 % (21.0-51.0); %Monocytes 9.6 % (0.0-10.0); %Neutrophils 62.5 % (42.0-75.0); Hemoglobin 13.6 g/dL (14.0-18.0); Mean Corpuscular HGB CONC 33.6 g/dL (32.0-36.0); Mean Corpuscular Hemoglobin 33.9 pg (27.0-31.0); Platelet Count 107 thou/uL (130-400); RBC Distribution Width 11.9 % (11.5-14.5); Red Blood Cell (RBC) Count 4.01 mill/uL (4.70-6.10); White Blood Cell (WBC) Count 5.5 thou/uL (4.8-10.8)
[2022-01-08 05:02] LABS: Anion Gap 13 mmol/L (10-20); BUN (Urea Nitrogen) 19 mg/dL (8.4-25.7); Calc. Creatinine Clearance 77 mL/min (70-130); Calcium 8.6 mg/dL (7.8-10.44); Carbon Dioxide 24 mmol/L (23-31); Chloride 106 mmol/L (98-107); Estimated GFR 88; Glucose 82 mg/dL (80-115); Potassium 3.9 mmol/L (3.5-5.1); Sodium 139 mmol/L (136-145)
[2022-01-08] MEDS ORDERED: Potassium Chloride 20 MEQ TAB PO SCH (08:00)
[2022-01-08] MEDS ORDERED: Spironolactone 25 MG TAB PO SCH (08:00)
[2022-01-08] MEDS: Aspirin 81 mg Enteric Coated Tablet PO SCH (08:37)
[2022-01-08] MEDS: Clopidogrel Bisulfate 75 MG TAB PO SCH (08:38)
[2022-01-08] MEDS: Carvedilol 6.25 MG TAB PO SCH (08:38)
[2022-01-08] MEDS: Enoxaparin Sodium 40 MG/0.4 ML SYRINGE SC SCH (08:38)
[2022-01-08] MEDS: Varenicline Tartrate 0.5 MG TAB PO SCH ×2 (10:00→18:10)
[2022-01-08 17:34] VITALS: BP 118/78; TEMP 98.5
== END 2022-01-08 19:07 | DRG 69 ==
LOC: ERS 23:33 → ERHOLD 01-06 03:57 → 2NO 01-06 13:58 → OBSVTOIN 01-07 13:37
PROVIDERS: ADMIT Student in an Organized Health Care Education/Training Program; ATTEND Family Medicine
DX: G45.9 Transient cerebral ischemic attack, unspecified (principal); I50.23 Acute on chronic systolic (congestive) heart failure; I13.0 Hypertensive heart and chronic kidney disease with heart failure and stage 1 through stage 4 chronic kidney disease, or unspecified chronic kidney disease; G40.909 Epilepsy, unspecified, not intractable, without status epilepticus; I25.10 Atherosclerotic heart disease of native coronary artery without angina pectoris; F17.210 Nicotine dependence, cigarettes, uncomplicated; E78.5 Hyperlipidemia, unspecified; E87.6 Hypokalemia; N18.9 Chronic kidney disease, unspecified; I25.5 Ischemic cardiomyopathy; Z20.822 Contact with and (suspected) exposure to COVID-19; Z79.82 Long term (current) use of aspirin; Z79.899 Other long term (current) drug therapy; Z95.1 Presence of aortocoronary bypass graft; Z95.810 Presence of automatic (implantable) cardiac defibrillator; I25.2 Old myocardial infarction
CPT/HCPCS: 36415; 36416; 70450; 70496; 70498; 71045; 80048; 80053; 80061; 80185; 83735; 83880; 84484; 85025; 93005; 93880; 94760; 96372; 96374; 96375; 96376; G0378; J1650; J1940; J3475; J7620; Q9967; U0002

== ENCOUNTER 2022-08-15 00:15 | Emergency (ER) | payer MEDICARE, MEDICAID ==
[2022-08-16 00:49] LABS: #Eosinphils 0.2 thou/uL (0.0-0.7); #Lymphocytes 1.7 thou/uL (1.20-3.40); #Monocytes 0.4 thou/uL (0.11-0.59); #Neutrophils 4.2 thou/uL (1.40-6.50); %Basophils 0.4 % (0.0-1.0); %Eosinophils 3.7 % (0.0-10.0); %Lymphocytes 26.1 % (21.0-51.0); %Neutrophils 63.8 % (42.0-75.0); Hemoglobin 13.5 g/dL (14.0-18.0); Mean Corpuscular HGB CONC 33.5 g/dL (32.0-36.0); Mean Corpuscular Hemoglobin 33.8 pg (27.0-31.0); Mean Platelet Volume 8.3 fL (7.4-10.4); Platelet Count 155 10x3/uL (130-400); RBC Distribution Width 12.3 % (11.5-14.5); White Blood Cell (WBC) Count 6.6 10x3/uL (4.8-10.8)
[2022-08-16 01:12] LABS: Acetaminophen Less than 10.0 mcg/mL (10.0-30.0); Alcohol 340 mg/dL (Less than 10); Salicylate Less than 8.0 mg/dL (15.0-30.0)
[2022-08-16 01:13] LABS: ALT (SGPT) 12 U/L (8-55); AST (SGOT) 20 U/L (5-34); Albumin 3.9 g/dL (3.4-4.8); Alkaline Phosphatase 98 U/L (40-110); Anion Gap 18 mmol/L (10-20); BUN (Urea Nitrogen) 17 mg/dL (8.4-25.7); Bilirubin, Total 0.3 mg/dL (0.2-1.2); Calc. Creatinine Clearance 0 mL/min (70-130); Calcium 8.4 mg/dL (7.8-10.44); Carbon Dioxide 15 mmol/L (23-31); Chloride 104 mmol/L (98-107); Estimated GFR 42; Glucose 82 mg/dL (80-115); Potassium 3.5 mmol/L (3.5-5.1); Protein, Total 6.9 g/dL (5.8-8.1); Sodium 133 mmol/L (136-145)
== END 2022-08-16 02:38 | disposition home or self-care (01) ==
LOC: ERS 00:15
DX: F10.129 Alcohol abuse with intoxication, unspecified (principal); S00.83XA Contusion of other part of head, initial encounter; E78.00 Pure hypercholesterolemia, unspecified; I10 Essential (primary) hypertension; F17.210 Nicotine dependence, cigarettes, uncomplicated; W18.30XA Fall on same level, unspecified, initial encounter; Y90.8 Blood alcohol level of 240 mg/100 ml or more; Z79.899 Other long term (current) drug therapy; Z79.82 Long term (current) use of aspirin
CPT/HCPCS: 36415; 70450; 80053; 80307; 85025; 93005